=== PATIENT | male | born 1970 | race Two or more races ===

== ENCOUNTER 2017-07-12 12:09 | Emergency (ER) | payer OTHER ==
[2017-07-12 12:15] VITALS: BMI 30.9
--- NOTE | 2017-07-12 12:28 | PDOC ---
History of Present Illness - General History Source: Patient Exam Limitations: No Limitations - History of Present Illness Initial Comments: 07/12/17 14:32 Patient is a 47 year old male who presents to the ED with complaints of hypertension, hypercholesterolemia and diabetes mellitus, who presents to the ED with complaints of increased heart rate that began last night. Patient reports feeling unwell since last night that he states occurred once 2 years ago. He reports experiencing urinary frequency for 1 week but is unsure if it is related to his increased heart rate. Patient reports experiencing intermittent dry mouth. Denies SOB. Denies nausea, vomiting. Denies fevers, chills. Denies contact with sick individuals, out of state travelling. Denies any other symptoms. Allergies: none Social history: No smoking. No alcohol. No illicit drugs. Surgical history: None PMD: Dr. Ry Edmonds. <Reinier Rendon - Last Filed: 07/12/17 14:32> <Jennifer Palumbo - Last Filed: 07/13/17 17:46> - General Chief Complaint: Palpitations Stated Complaint: FAST HEART RATE Time Seen by Provider: 07/12/17 12:26 Past History <Reinier Rendon - Last Filed: 07/12/17 14:32> - Past Medical History Anemia: No Asthma: No Cancer: No Cardiac Disorders: No CVA: No COPD: No CHF: No Dementia: No Diabetes: Yes GI Disorders: No Disorders: No HTN: Yes Hypercholesterolemia: No Liver Disease: No Seizures: No Thyroid Disease: No - Immunization History Immunization Up to Date: Yes - Suicide/Smoking/Psychosocial Hx Smoking History: Never smoked Have you smoked in the past 12 months: No Hx Alcohol Use: No Drug/Substance Use Hx: No Substance Use Type: None Hx Substance Use Treatment: No <Jennifer Palumbo - Last Filed: 07/13/17 17:46> - Past Medical History Allergies/Adverse Reactions: Allergies Allergy/AdvReac Type Severity Reaction Status Date / Time No Known Allergies Allergy Verified 07/12/17 12:15 Home Medications: Ambulatory Orders Aspirin [ASA -] 81 mg PO DAILY 04/06/14 Atorvastatin Ca [Lipitor] 20 mg PO HS 04/06/14 Ezetimibe [Zetia] 10 mg PO DAILY 04/06/14 Insulin Glargine,Hum.rec.anlog [Lantus (10mL VIAL) -] 45 units SQ HS 04/06/14 Sitagliptin Phos/Metformin HCl [Janumet 50-1,000 mg Tablet] 1 tab PO BID Valsartan [Diovan] 160 mg PO DAILY 04/06/14 Review of Systems - Review of Systems Able to Perform ROS?: Yes Comments:: 07/12/17 14:32 GENERAL/CONSTITUTIONAL: No fever or chills. No weakness. HEAD, EYES, EARS, NOSE AND THROAT: No change in vision. No ear pain or discharge. No sore throat. GASTROINTESTINAL: No nausea, vomiting, diarrhea or constipation. GENITOURINARY: No dysuria, frequency, or change in urination. CARDIOVASCULAR: +Increased heart rate. +Slight chest pain. No shortness of breath. RESPIRATORY: No cough, wheezing, or hemoptysis. MUSCULOSKELETAL: No joint or muscle swelling or pain. No neck or back pain. SKIN: No rash NEUROLOGIC: No headache, vertigo, loss of consciousness, or change in strength/ sensation. ENDOCRINE: No increased thirst. No abnormal weight change. HEMATOLOGIC/LYMPHATIC: No anemia, easy bleeding, or history of blood clots. ALLERGIC/IMMUNOLOGIC: No hives or skin allergy. All Other Systems: Reviewed and Negative <Reinier Rendon - Last Filed: 07/12/17 14:32> *Physical Exam - Vital Signs Last Vital Signs Temp Pulse Resp BP Pulse Ox 98.7 F 153 H 20 134/92 100 07/12/17 12:11 07/12/17 12:11 07/12/17 12:11 07/12/17 12:11 07/12/17 12:11 - Physical Exam Comments: 07/12/17 14:32 GENERAL: +Speaking fast. Awake, alert, and fully oriented, in no acute distress HEAD: No signs of trauma EYES: PERRLA, EOMI, sclera anicteric, conjunctiva clear ENT: Auricles normal inspection, hearing grossly normal, nares patent, oropharynx clear without exudates. Moist mucosa NECK: Normal ROM, supple, no lymphadenopathy, JVD, or masses LUNGS: Breath sounds equal, clear to auscultation bilaterally. No wheezes, and no crackles HEART: +Tachycardic with regular rhythm. Regular rate and rhythm, normal S1 and S2, no murmurs, rubs or gallops ABDOMEN: Soft, nontender, normoactive bowel sounds. No guarding, no rebound. No masses EXTREMITIES: Normal range of motion, no edema. No clubbing or cyanosis. No cords, erythema, or tenderness NEUROLOGICAL: +Anxious. Cranial nerves II through XII grossly intact. Normal speech, normal gait SKIN: Warm, Dry, normal turgor, no rashes or lesions noted. <Reinier Rendon - Last Filed: 07/12/17 14:32> - Vital Signs Last Vital Signs Temp Pulse Resp BP Pulse Ox 98.7 F 153 H 20 134/92 100 07/12/17 12:11 07/12/17 12:11 07/12/17 12:11 07/12/17 12:11 07/12/17 12:11 <Jennifer Palumbo - Last Filed: 07/13/17 17:46> Heart Score/ECG Review - ECG Impressions Comment:: EKG read 13:29- Sinus tach 118 bpm, no acute ST/T changes <Jennifer Palumbo - Last Filed: 07/13/17 17:46> ED Treatment Course - LABORATORY CBC & Chemistry Diagram: 07/12/17 12:52 07/12/17 12:52 - ADDITIONAL ORDERS Additional order review: Laboratory Results 07/12/17 07/12/17 07/12/17 12:52 12:52 12:52 PT with INR 10.40 INR 0.92 Sodium 134 L Potassium 3.9 Chloride 97 L Carbon Dioxide 28 Anion Gap 9 BUN 21 H Creatinine 1.2 Creat Clearance w eGFR > 60 Random Glucose 403 H* D Calcium 8.7 Magnesium 1.9 Total Bilirubin 0.6 D AST 33 D ALT 58 Alkaline Phosphatase 62 Creatine Kinase Cancelled 300 Creatine Kinase Index 1.1 CK-MB (CK-2) 3.384 Troponin I Cancelled 0.02 Total Protein 7.4 Albumin 4.0 TSH Cancelled 07/12/17 12:52 RBC 5.47 MCV 79.0 L MCHC 34.8 RDW 12.8 MPV 9.0 Neutrophils % 58.1 D Lymphocytes % 32.2 D Monocytes % 6.4 Eosinophils % 2.7 Basophils % 0.6 <Reinier Rendon - Last Filed: 07/12/17 14:32> - LABORATORY CBC & Chemistry Diagram: 07/12/17 12:52 07/12/17 12:52 <Jennifer Palumbo - Last Filed: 07/13/17 17:46> Medical Decision Making - Medical Decision Making Pt presented with tachycardia, palpitations. Workup showed elevated blood glucose, and patient states that his PMD has been attempting to get a new type of insulin approved for him by his insurance, as he has been requiring higher doses recently. With IV fluids, his BGM improved. He was also given a dose of insulin in the ED. No other acute findings on evaluation. He is on flomax and abx for urinary frequency, prescribed by his PMD. Will f/u with PMD outpatient. <Jennifer Palumbo - Last Filed: 07/13/17 17:46> *DC/Admit/Observation/Transfer - Attestations Scribe Attestion: 07/12/17 14:32 Documentation prepared by Reinier Rendon, acting as medical laboratory technician for Jennifer Palumbo MD, /DO. <Reinier Rendon - Last Filed: 07/12/17 14:32> - Discharge Dispostion Admit: No <Jennifer Palumbo - Last Filed: 07/13/17 17:46> Diagnosis at time of Disposition: Hyperglycemia, Dehydration - Discharge Dispostion Disposition: HOME Condition at time of disposition: Improved - Referrals Referrals: Ry Edmonds MD [Primary Care Provider] - - Patient Instructions Printed Discharge Instructions: DI for Dehydration -- Adult, DI for Hyperglycemia -- Adult - Post Discharge Activity Forms/Work/School Notes: Back to Work
[2017-07-12] MEDS ORDERED: SODIUM CHLORIDE 2,000 ML IV STA (12:46)
[2017-07-12 13:10] LABS: BASO % 0.6 % (0-2.0); EOS % 2.7 % (0-4.5); HEMATOCRIT 43.3 % (35.4-49); HEMOGLOBIN 15.1 GM/dL (11.7-16.9); LYMPH % 32.2 % (8-40); MCH 27.5 pg (25.7-33.7); MCHC 34.8 g/dl (32.0-35.9); MONO % 6.4 % (3.8-10.2); NEUT % 58.1 % (42.8-82.8); PLATELET COUNT 172 K/MM3 (134-434); RBC 5.47 M/mm3 (4.00-5.60); RDW 12.8 % (11.9-15.9); WHITE BLOOD COUNT 7.3 K/mm3 (4.0-10.0)
[2017-07-12 13:34] LABS: INR 0.92 (0.82-1.09); PROTHROMBIN TIME (PATIENT) 10.4 SEC (9.98-11.88)
[2017-07-12 13:35] LABS: URINE APPEARANCE CLEAR; URINE BILIRUBIN NEGATIVE (NEGATIVE); URINE BLOOD NEGATIVE (NEGATIVE); URINE COLOR STRAW; URINE GLUCOSE (UA) 3+ (NEGATIVE); URINE KETONE NEGATIVE (NEGATIVE); URINE LEUK ESTERASE NEGATIVE (NEGATIVE); URINE NITRITE NEGATIVE (NEGATIVE); URINE PROTEIN NEGATIVE (NEGATIVE); URINE UROBILINOGEN NEGATIVE mg/dL (0.2-1.0)
[2017-07-12 13:36] LABS: ANION GAP 9 (8-16); BILIRUBIN,TOTAL 0.6 mg/dL (0.2-1.0); BLOOD UREA NITROGEN 21 mg/dL (7-18); CALCIUM 8.7 mg/dL (8.5-10.1); CHLORIDE 97 mmol/L (98-107); CO2 28 mmol/L (21-32); CREATININE 1.2 mg/dL (0.7-1.3); SGPT/ALT 58 U/L (12-78); SODIUM 134 mmol/L (136-145)
[2017-07-12 13:45] LABS: ALK PHOS 62 U/L (45-117); TOT PROT 7.4 g/dl (6.4-8.2)
[2017-07-12 13:47] LABS: MAGNESIUM 1.9 mg/dL (1.8-2.4); POTASSIUM 3.9 mmol/L (3.5-5.1); SGOT/AST 33 U/L (15-37)
[2017-07-12 13:48] LABS: GLUCOSE,RANDOM 403 mg/dL (74-106)
[2017-07-12] MEDS ORDERED: SODIUM CHLORIDE 1,000 ML IV STA (15:17)
--- NOTE | 2017-07-12 15:24 | EKG ---
Test Reason : Blood Pressure : / mmHG Vent. Rate : 118 BPM Atrial Rate : 118 BPM P-R Int : 154 ms QRS Dur : 090 ms QT Int : 328 ms P-R-T Axes : 034 049 010 degrees QTc Int : 459 ms SINUS TACHYCARDIA NONSPECIFIC ST ABNORMALITY ABNORMAL ECG WHEN COMPARED WITH ECG OF 27-SEP-2015 07:41, NO SIGNIFICANT CHANGE WAS FOUND Confirmed by NATHALIE POLANCO MD ([id number]) on 07/12/2017 3:23:57 PM Referred By: Confirmed By:NATHALIE POLANCO MD
[2017-07-12] MEDS ORDERED: INSULIN REGULAR HUMAN 100 UNITS/ML *VIAL SQ ONE (16:38)
[2017-07-12] MEDS ORDERED: INSULIN REGULAR HUMAN 100 UNITS/ML *VIAL ONE (17:01)
[2017-07-12 17:12] VITALS: BP 104/66; PULSE 89; TEMP 98.1
== END 2017-07-12 17:13 | disposition home or self-care (01) ==
LOC: JER 12:09
PROC: 3E013VG Introduction of Insulin into Subcutaneous Tissue, Percutaneous Approach (ICD-10-PCS; principal; 2017-07-12)
PROC: 3E0337Z Introduction of Electrolytic and Water Balance Substance into Peripheral Vein, Percutaneous Approach (ICD-10-PCS; 2017-07-12)
DX: E11.65 Type 2 diabetes mellitus with hyperglycemia (principal); Z79.4 Long term (current) use of insulin; I10 Essential (primary) hypertension; E78.00 Pure hypercholesterolemia, unspecified
CPT/HCPCS: 36415; 71045-TC; 80053; 81003; 82550; 82553; 82962; 83735; 84443; 84484; 85025; 85610; 87086; 93005; 93010; 99284-25

== ENCOUNTER 2020-01-23 18:30 | Observation (INO) | payer BC, OTHER ==
--- NOTE | 2020-01-23 18:39 | PDOC ---
Rapid Medical Evaluation Chief Complaint: Chest Pain Time Seen by Provider: 01/23/20 18:34 Medical Evaluation: Allergies Allergy/AdvReac Type Severity Reaction Status Date / Time No Known Allergies Allergy Verified 07/12/17 12:15 01/23/20 18:38 49 year old male with pmhx of HTN Dm presenting with 2 hours of chest pain without SOB. Tachycardic and hypertensive PE: CTA Tachy but regular Labs EKG CHest XR Pt to precede to main ED for further management and care
--- NOTE | 2020-01-23 19:02 | PDOC ---
History of Present Illness - General Chief Complaint: Chest Pain Stated Complaint: CHEST PAIN/HYPERTENTION Time Seen by Provider: 01/23/20 18:34 - History of Present Illness Initial Comments: The pt is a 49M w/ a history of HTN, HLD who presents for evaluation of several hours of chest pain. The pain of substernal/right sided, pressure-like, non- radiating, non-exertional, and not exacerbated or alleviated by anything he can identify. He also noted that his BP was elevated today to SBP 180s. He reports taking an ASA 81mg prior to arrival. Denies KAMARA, vision changes, fevers/chills, SOB, current CP, abdominal pain, N/V/C/D 01/23/20 19:19 Past History - Medical History Allergies/Adverse Reactions: Allergies Allergy/AdvReac Type Severity Reaction Status Date / Time No Known Allergies Allergy Verified 07/12/17 12:15 Home Medications: Ambulatory Orders Aspirin [ASA -] 81 mg PO DAILY 04/06/14 Insulin Glargine,Hum.rec.anlog [Lantus (10mL VIAL) -] 48 units SQ BID 04/06/14 Sitagliptin Phos/Metformin HCl [Janumet 50-1,000 mg Tablet] 1 tab PO BID 04/06/14 Atorvastatin Ca [Lipitor] 40 mg PO HS 01/24/20 Loratadine 10 mg PO DAILY 01/24/20 Metoprolol Succinate [Toprol Xl] 50 mg PO DAILY 01/24/20 Valsartan 320 mg PO DAILY #30 tablet 01/24/20 Anemia: No Asthma: No Cancer: No Cardiac Disorders: No CVA: No COPD: No CHF: No Dementia: No Diabetes: Yes GI Disorders: No Disorders: No HTN: Yes Hypercholesterolemia: No Liver Disease: No Seizures: No Thyroid Disease: No - Immunization History Immunization Up to Date: Yes - Psycho-Social/Smoking History Smoking History: Smoker current status UNK Have you smoked in the past 12 months: No - Substance Abuse Hx (Audit-C & DAST Scrn) How often the patient has a drink containing alcohol: Never Score: In Men: 4 or > Positive; In Women: 3 or > Positive: 0 Screen Result (Pos requires Nsg. Audit-10AR): Negative In the last yr the pt used illegal drug/Rx for NonMed reason: No Score: Yes response is considered Positive: 0 Screen Result (Positive result requires Nsg. DAST-10): Negative Review of Systems - Review of Systems Able to Perform ROS?: Yes Comments:: GENERAL/CONSTITUTIONAL: No fever or chills. No weakness HEAD, EYES, EARS, NOSE AND THROAT: No change in vision. No change in hearing. No sore throat CARDIOVASCULAR: No shortness of breath RESPIRATORY: Denies cough, hemoptysis GASTROINTESTINAL: No nausea, vomiting, diarrhea or constipation GENITOURINARY: No dysuria, frequency, or change in urination MUSCULOSKELETAL: No joint or muscle swelling or pain. No neck or back pain SKIN: No rash NEUROLOGIC: No headache, vertigo, loss of consciousness, or change in strength/sensation ENDOCRINE: No increased thirst. No abnormal weight change HEMATOLOGIC/LYMPHATIC: No anemia, easy bleeding, or history of blood clots ALLERGIC/IMMUNOLOGIC: No hives or skin allergy 01/23/20 19:02 Is the patient limited Thai proficient: No *Physical Exam - Vital Signs Last Vital Signs Temp Pulse Resp BP Pulse Ox 98.9 F 129 H 20 182/92 H 100 01/23/20 18:37 01/23/20 18:37 01/23/20 18:37 01/23/20 18:37 01/23/20 18:37 - Physical Exam GENERAL: Awake, alert, and oriented to person/place/time, in no acute distress HEAD: No signs of trauma, normocephalic, atraumatic EYES: PERRLA, EOMI, sclera anicteric, conjunctiva clear ENT: Hearing grossly normal, nares patent, oropharynx clear without exudates. No uvular deviation. Moist mucosa LUNGS: No distress, speaks in full sentences, clear to auscultation bilaterally HEART: Tachycarida w/ regular rhythm, normal S1 and S2, no murmurs appreciated, peripheral pulses normal and equal bilaterally ABDOMEN: Soft, nontender, normoactive bowel sounds. No guarding, no rebound EXTREMITIES: Normal inspection, Normal range of motion, no edema. No clubbing or cyanosis NEUROLOGICAL: Cranial nerves II through XII grossly intact. Normal speech, normal gait, no focal sensorimotor deficits SKIN: Warm, Dry 01/23/20 19:02 ED Treatment Course - LABORATORY CBC & Chemistry Diagram: 01/24/20 07:08 01/24/20 07:08 Medical Decision Making - Medical Decision Making The pt is a 49M w/ a history of HTN, HLD who presents for evaluation of several hours of chest pain. ED Course pt w/o active CP at time of evaluation Pt reports being compliant with BP meds at home Repeat BP 170s/70s 01/23/20 19:22 Pt with improved pressures to 130s/60s Pt continues w/o CP No anemia No leukocytosis Initial Trop I neg RACHEL noted, Cr 1.9, baseline 1-1.2 LFTs unremarkable ECG w/ sinus tachycardia; HR 125; QTc 447; no axis deviation; no acute ischemic changes Pt's BP noted to be elevated back to SBP 160s, will give home meds. Pt continues to deny CP at this time. Plan for admission for ACS and RACHEL 01/23/20 20:47 Discharge - Discharge Information Problems reviewed: Yes Clinical Impression/Diagnosis: ACS (acute coronary syndrome), RACHEL (acute kidney injury) Condition: Stable - Admission Yes - Follow up/Referral - Patient Discharge Instructions - Post Discharge Activity
[2020-01-23] MEDS ORDERED: ASPIRIN 81 MG CHEWABLE TABLETS ONE (19:16)
[2020-01-23] MEDS ORDERED: ASPIRIN 81 MG CHEWABLE TABLETS PO ONE ×2 (19:20→19:23)
[2020-01-23] MEDS ORDERED: LACTATED RINGERS SOLUTION 1000 ML INFUS.BAG IV ONE (19:21)
[2020-01-23 19:36] LABS: BASO % 0.5 % (0-2.0); EOS % 5.7 % (0-4.5); HEMATOCRIT 40.7 % (35.4-49); HEMOGLOBIN 14.2 GM/dL (11.7-16.9); LYMPH % 36.6 % (8-40); MCH 28.2 pg (25.7-33.7); MCHC 34.9 g/dl (32.0-35.9); MEAN CELL VOLUME 80.8 fl (80-96); MEAN PLT VOLUME 9.5 fl (7.5-11.1); MONO % 7.6 % (3.8-10.2); NEUT % 49.6 % (42.8-82.8); PLATELET COUNT 169 K/MM3 (134-434); RBC 5.05 M/mm3 (4.00-5.60); RDW 13.1 % (11.9-15.9); WHITE BLOOD COUNT 6.4 K/mm3 (4.0-10.0)
--- NOTE | 2020-01-23 19:56 | PDOC ---
Attending Attestation - Resident Resident Name: StewartPrince arroyo - ED Attending Attestation I have performed the following: I have examined & evaluated the patient, The case was reviewed & discussed with the resident, I agree w/resident's findings & plan, Exceptions are as noted - HPI HPI: 01/24/20 01:11 See resident HPI - Physicial Exam PE: 01/24/20 01:11 Agree with documented exam - Medical Decision Making 01/23/20 19:56 Chest pain in context of acutely elevated BP and Moderate risk by HEART Monitor f/u labs, ekg will likely need admission neg trop x1, Ck 400s, Cr 1.9 acutely elevated EKG non-ischemic Discharge - Discharge Information Problems reviewed: Yes Clinical Impression/Diagnosis: ACS (acute coronary syndrome), RACHEL (acute kidney injury) Condition: Stable - Follow up/Referral - Patient Discharge Instructions - Post Discharge Activity
[2020-01-23 20:06] LABS: ALBUMIN 3.8 g/dl (3.4-5.0); ALK PHOS 54 U/L (45-117); ANION GAP 11 MMOL/L (8-16); BILIRUBIN,TOTAL 0.4 mg/dL (0.2-1); BLOOD UREA NITROGEN 27.5 mg/dL (7-18); CALCIUM 8.5 mg/dL (8.5-10.1); CHLORIDE 99 mmol/L (98-107); CO2 26 mmol/L (21-32); CREATININE 1.9 mg/dL (0.55-1.3); GLUCOSE,RANDOM 372 mg/dL (74-106); N-TERMINAL BNP 39.3 pg/ml (5-125); POTASSIUM 4.1 mmol/L (3.5-5.1); SGOT/AST 30 U/L (15-37); SGPT/ALT 52 U/L (13-61); SODIUM 136 mmol/L (136-145); TOT PROT 6.8 g/dl (6.4-8.2)
[2020-01-23 20:16] LABS: PH,URINE 5.5 (5.0-8.0); URINE APPEARANCE CLEAR; URINE BILIRUBIN NEGATIVE (NEGATIVE); URINE COLOR YELLOW; URINE GLUCOSE (UA) 3+ (NEGATIVE); URINE KETONE NEGATIVE (NEGATIVE); URINE LEUK ESTERASE NEGATIVE (NEGATIVE); URINE NITRITE NEGATIVE (NEGATIVE); URINE PROTEIN NEGATIVE (NEGATIVE); URINE UROBILINOGEN 0.2 mg/dL (0.2-1.0)
--- NOTE | 2020-01-23 20:58 | PN ---
Teaching Attending Note Name of Resident: Rosalie Lau ATTENDING PHYSICIAN STATEMENT I saw and evaluated the patient. I reviewed the resident's note and discussed the case with the resident. I agree with the resident's findings and plan as documented. SUBJECTIVE: Patient is a 49 year old man with a PMH of HTN, HLD, Arthritis of hands and NIDDM who presents for evaluation of several hours of chest pain. The pain is substernal, right sided, pressure-like, non-radiating and non-exertional. Pain is worse after eating. He also noted that his BP was elevated today to SBP in the 180s. He reports taking an ASA 81 mg prior to arrival. Patient works in a [employer], does a lot of lifting and takes NSAIDS for pain in his hands. Patient denies diaphoresis, shortness of breath, abdominal pain, headache, palpitations, dizziness, fever, chills, nausea, vomiting, diarrhea, constipation, dysuria, frequency, urgency, melena, hematochezia or hematuria. Denies alcohol, tobacco or illicit drug use. No sick contacts or recent travels. Patient has a family history of DM, HTN and heart disease. OBJECTIVE: Alert Vital Signs Period Temp Pulse Resp BP Sys/Menendez Pulse Ox Last 24 Hr 98.9 F 129 20 182/92 100 HEENT: No Jaundice, eye redness or discharge, PERRLA, EOMI. Normocephalic, atraumatic. External ears are normal and hearing is grossly intact. No nasal discharge. Neck: Supple, nontender. No palpable adenopathy or thyromegaly. No JVD Chest: Good effort. Clear to auscultation and percussion. Heart: Regular. No S3, rub or murmur Abdomen: Not distended, soft, nontender and no HSM. No rebound or guarding. Normal bowel sounds. Ext: Peripheral pulses intact. No leg edema. Skin: Warm and dry. No petechiae, rash or ecchymosis. Neuro: Alert. Oriented x3. CN 2-12 grossly intact. Sensation grossly intact in all four extremities and DTR are symmetric. Psych: Appropriate mood and affect. Good insight. Home Medications Medication Instructions Recorded Aspirin [ASA -] 81 mg PO DAILY 04/06/14 Atorvastatin Ca [Lipitor] 20 mg PO HS 04/06/14 Ezetimibe [Zetia] 10 mg PO DAILY 04/06/14 Insulin Glargine,Hum.rec.anlog 45 units SQ HS 04/06/14 [Lantus (10mL VIAL) -] Sitagliptin Phos/Metformin HCl 1 tab PO BID 04/06/14 [Janumet 50-1,000 mg Tablet] Valsartan [Diovan] 160 mg PO DAILY 04/06/14 Abnormal Lab Results 01/23/20 01/23/20 01/23/20 19:15 19:15 19:40 Eosinophils % 5.7 H D BUN 27.5 H Creatinine 1.9 H Random Glucose 372 H Creatine Kinase 426 H CK-MB (CK-2) 5.6 H Urine Glucose (UA) 3+ H Current Medications Generic Name Dose Route Start Last Admin Trade Name Freq PRN Reason Stop Dose Admin Heparin Sodium (Porcine) 5,000 unit 01/24/20 06:00 Heparin - SQ TID CLARKE Sodium Chloride 1,000 mls @ 83 mls/hr 01/23/20 23:15 01/23/20 23:42 Normal Saline - IV 83 mls/hr ASDIR CLARKE Administration Insulin Aspart 1 vial 01/24/20 07:00 Novolog Vial Sliding Scale - SQ ACHS [facility] Protocol Pantoprazole Sodium 40 mg 01/24/20 10:00 Protonix Iv IVPUSH DAILY [facility] ASSESSMENT AND PLAN: 1. Chest pain - Now pain free. Has risk factors for ACS, but postprandial feature suggests GI pathology. No acute abnormality on CXR. EKG shows sinus tachycardia at 125/minute and QTc [address]-T wave changes. Initial troponin is negative. Will admit to telemetry, trend troponin, get ECHO, fasting lipids, TSH, treat with IV Protonix and consult Cardiology. Consult GI for possible EGD. Got Aspirin 243 mg and IV LR in the ER. No acute abnormality on CXR. Viral testing for COVID-19 ordered and patient placed on airborne, droplet and contact isolation. Will continue comprehensive care for all of patients comorbid conditions. 2. RACHEL Has rhabdomyolysis. May be partly due to NSAIDS. Will get kidney sonogram, urine protein/creatinine ratio, hydrate gently with IV NS, monitor urine output and consult Nephrology. Avoid nephrotoxic agents such as NSAIDS, aminoglycosides, 3. DM For now, we will hold the home diabetes drugs and implement sliding scale insulin regimen. Provide comprehensive diabetes care with patient teaching and counseling about the importance of adherence to prescribed diabetes regimen , euglycemia, eye care and foot care. 4. Hypertension Will restart suitable outpatient antihypertensive drugs when clinically appropriate. Subsequently, will revise regimen to ensure [id number] excellent BP control. Patient counseled on the injurious effects of uncontrolled hypertension. Nonpharmacologic measures to control hypertension like weight loss, salt restriction and exercise stressed. Importance of adherence to treatment regimen and attainment of normotension emphasized. 5. DVT prophylaxis - Heparin 5000u sq tid. 6. Advance directives - Full code
[2020-01-23] MEDS ORDERED: VALSARTAN 160 MG TABLET (UD) PO ONE (21:25)
[2020-01-23] MEDS ORDERED: VALSARTAN 80 MG TABLET (UD) ONE (21:38)
--- NOTE | 2020-01-23 23:01 | HP ---
CHIEF COMPLAINT: CHEST PAIN PCP: HISTORY OF PRESENT ILLNESS: Pt is a 49yo male with a past medical history of DM(on insulin) HTN(on valsartan), HLD(on lipitor), arthritis( on naproxene) who presents to the ED with a day's hx of acute chest pain. Pain was of sudden onset, pressure like in nature, not radiating, no relieving or aggravating factor and lasted for about 4 hours thought patients says he is now doing ok without pain. In his words, he says "I am now very fine, I am ok. There is no pain right now". Patient believes today's pain is diferent from his previous episodes of pain which is usually of gradual onset, burning and associated with meals, surgary drinks, kar drinks and immediate periods after waking up from sleep. He rates pain at 5-6/10 on a pain scale. Patient denies associated nausea, vomiting, diarrhea, constipation,melena, hematochezia, cough, shortness of breath, hemoptysis and palpitations. No associated headache, syncope, blurring vision or hearing impairment ER course was notable for: (1) (2) (3) Recent Travel: None PAST SURGICAL HISTORY: None Social History: Smoking:None Alcohol: None Drugs:None Allergies: No known drug or food allergy HOME MEDICATIONS: Home Medications Medication Instructions Recorded Aspirin [ASA -] 81 mg PO DAILY 04/06/14 Atorvastatin Ca [Lipitor] 20 mg PO HS 04/06/14 Ezetimibe [Zetia] 10 mg PO DAILY 04/06/14 Insulin Glargine,Hum.rec.anlog 45 units SQ HS 04/06/14 [Lantus (10mL VIAL) -] Sitagliptin Phos/Metformin HCl 1 tab PO BID 04/06/14 [Janumet 50-1,000 mg Tablet] Valsartan [Diovan] 160 mg PO DAILY 04/06/14 REVIEW OF SYSTEMS CONSTITUTIONAL: Absent: fever, chills, diaphoresis, generalized weakness, malaise, loss of appetite, weight change HEENT: Absent: rhinorrhea, nasal congestion, throat pain, throat swelling, difficulty swallowing, mouth swelling, ear pain, eye pain, visual changes CARDIOVASCULAR: Absent: chest pain, syncope, palpitations, irregular heart rate, lightheadedness, peripheral edema RESPIRATORY: Absent: cough, shortness of breath, dyspnea with exertion, orthopnea, wheezing, stridor, hemoptysis GASTROINTESTINAL: Absent: abdominal pain, abdominal distension, nausea, vomiting, diarrhea, constipation, melena, hematochezia GENITOURINARY: Absent: dysuria, frequency, urgency, hesitancy, hematuria, flank pain, genital pain MUSCULOSKELETAL: Absent: myalgia, arthralgia, joint swelling, back pain, neck pain SKIN: Absent: rash, itching, pallor HEMATOLOGIC/IMMUNOLOGIC: Absent: easy bleeding, easy bruising, lymphadenopathy, frequent infections ENDOCRINE: Absent: unexplained weight gain, unexplained weight loss, heat intolerance, cold intolerance NEUROLOGIC: Absent: headache, focal weakness or paresthesias, dizziness, unsteady gait, seizure, mental status changes, bladder or bowel incontinence PSYCHIATRIC: Absent: anxiety, depression, suicidal or homicidal ideation, hallucinations. PHYSICAL EXAMINATION Vital Signs - 24 hr 01/23/20 01/23/20 18:37 21:40 Temperature 98.9 F Pulse Rate 129 H Pulse Rate [ 84 Left Radial] Respiratory 20 16 Rate Blood Pressure 182/92 H Blood Pressure 137/85 [Right Arm] O2 Sat by Pulse 100 97 Oximetry (%) GENERAL: Awake, alert, and fully oriented, in no acute distress. HEAD: Normal with no signs of trauma. EYES: Pupils equal, round and reactive to light, extraocular movements intact, sclera anicteric, conjunctiva clear. No lid lag. EARS, NOSE, THROAT: Ears normal, nares patent, oropharynx clear without exudates. Moist mucous membranes. NECK: Normal range of motion, supple without lymphadenopathy, JVD, or masses. LUNGS: Breath sounds equal, clear to auscultation bilaterally. No wheezes, and no crackles. No accessory muscle use. HEART: Regular rate and rhythm, normal S1 and S2 without murmur, rub or gallop. ABDOMEN: Soft, nontender, not distended, normoactive bowel sounds, no guarding, no rebound, no masses. No hepatomegaly or splenomegaly. MUSCULOSKELETAL: Normal range of motion at all joints. No bony deformities or tenderness. No CVA tenderness. UPPER EXTREMITIES: 2+ pulses, warm, well-perfused. No cyanosis. No clubbing. No peripheral edema. LOWER EXTREMITIES: 2+ pulses, warm, well-perfused. No calf tenderness. No peripheral edema. NEUROLOGICAL: Cranial nerves II-XII intact. Normal speech. Normal gait. PSYCHIATRIC: Cooperative. Good eye contact. Appropriate mood and affect. SKIN: Warm, dry, normal turgor, no rashes or lesions noted, normal capillary refill. Laboratory Results - last 24 hr 01/23/20 01/23/20 01/23/20 19:15 19:15 19:40 WBC 6.4 RBC 5.05 Hgb 14.2 Hct 40.7 MCV 80.8 MCH 28.2 MCHC 34.9 RDW 13.1 Plt Count 169 MPV 9.5 Absolute Neuts (auto) 3.2 Neutrophils % 49.6 Lymphocytes % 36.6 Monocytes % 7.6 Eosinophils % 5.7 H D Basophils % 0.5 Nucleated RBC % 0 Sodium 136 Potassium 4.1 Chloride 99 Carbon Dioxide 26 Anion Gap 11 BUN 27.5 H Creatinine 1.9 H Est GFR (CKD-EPI)AfAm 46.28 Est GFR (CKD-EPI)NonAf 39.93 Random Glucose 372 H Calcium 8.5 Total Bilirubin 0.4 AST 30 ALT 52 Alkaline Phosphatase 54 Creatine Kinase 426 H Creatine Kinase Index 1.3 CK-MB (CK-2) 5.6 H Troponin I < 0.02 B-Natriuretic Peptide 39.3 Total Protein 6.8 Albumin 3.8 Beta-Hydroxybutyrate 2.2 Urine Color Yellow Urine Appearance Clear Urine pH 5.5 Ur Specific [place] 1.030 Urine Protein Negative Urine Glucose (UA) 3+ H Urine Ketones Negative Urine Blood Negative Urine Nitrite Negative Urine Bilirubin Negative Urine Urobilinogen 0.2 Ur Leukocyte Esterase Negative ASSESSMENT/PLAN: ATTENDING PHYSICIAN STATEMENT I saw and evaluated the patient. I reviewed the resident's note and discussed the case with the resident. I agree with the resident's findings and plan as documented. SUBJECTIVE: OBJECTIVE: ASSESSMENT AND PLAN:
[2020-01-23] MEDS ORDERED: PANTOPRAZOLE SODIUM 40 MG VIAL IVPUSH ONE (23:15)
[2020-01-23] MEDS ORDERED: SODIUM CHLORIDE 1,000 ML IV SCH (23:15)
[2020-01-24 04:18] VITALS: BMI 34.8
[2020-01-24] MEDS ORDERED: HEPARIN NA (PORCINE) 5,000 UNITS/ML 1ML VIAL SQ SCH (06:00)
[2020-01-24] MEDS ORDERED: INSULIN SLIDING SCALE (NOVOLOG) 1 VIAL SQ SCH (07:00)
[2020-01-24 07:36] LABS: BASO % 0.6 % (0-2.0); EOS % 6.7 % (0-4.5); HEMOGLOBIN 13.4 GM/dL (11.7-16.9); LYMPH % 37.4 % (8-40); MCH 27.2 pg (25.7-33.7); MCHC 34.4 g/dl (32.0-35.9); MEAN PLT VOLUME 8.9 fl (7.5-11.1); MONO % 7.4 % (3.8-10.2); NEUT % 47.9 % (42.8-82.8); PLATELET COUNT 143 K/MM3 (134-434); RBC 4.94 M/mm3 (4.00-5.60); RDW 13.1 % (11.9-15.9); WHITE BLOOD COUNT 4.9 K/mm3 (4.0-10.0)
--- NOTE | 2020-01-24 07:42 | HP ---
CHIEF COMPLAINT: PCP: HISTORY OF PRESENT ILLNESS: Pt is a 49yo male with a past medical history of DM(on insulin) HTN(on valsartan), HLD(on lipitor), arthritis( on naproxene) who presents to the ED with a day's hx of acute chest pain. Pain was of sudden onset, pressure like in nature, not radiating, no relieving or aggravating factor and lasted for about 4 hours thought patients says he is now doing ok without pain. In his words, he says "I am now very fine, I am ok. There is no pain right now". Patient believes today's pain is diferent from his previous episodes of pain which is usually of gradual onset, burning and associated with meals, surgary drinks, kar drinks and immediate periods after waking up from sleep. He rates pain at 5-6/10 on a pain scale. Patient denies associated nausea, vomiting, diarrhea, constipation,melena, hematochezia, cough, shortness of breath, hemoptysis and palpitations. No associated headache, syncope, blurring vision or hearing impairment ER course was notable for: (1) Aspirin 243, IV LR (2)Cardiac enzymes (3) EKG REVIEW OF SYSTEMS Negative except as above Recent Travel: None PAST SURGICAL HISTORY: None Social/ FHx History: He lives with his and 4 children Smoking:None Alcohol:None Drugs: None Allergies: No Known drug or food allergies FHx: Heart disease, DM, HTN Occupation: He works in [employer] where he lifts heavy boxes. 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 Home Medications Medication Instructions Recorded Aspirin [ASA -] 81 mg PO DAILY 04/06/14 Atorvastatin Ca [Lipitor] 20 mg PO HS 04/06/14 Ezetimibe [Zetia] 10 mg PO DAILY 04/06/14 Insulin Glargine,Hum.rec.anlog 45 units SQ HS 04/06/14 [Lantus (10mL VIAL) -] Sitagliptin Phos/Metformin HCl 1 tab PO BID 04/06/14 [Janumet 50-1,000 mg Tablet] Valsartan [Diovan] 160 mg PO DAILY 04/06/14 Vital Signs - 24 hr 01/23/20 01/23/2001/22/20 18:37 21:40 23:03 Temperature 98.9 F 98.0 F Pulse Rate 129 H 85 Pulse Rate [ 84 Left Radial] Respiratory 20 16 16 Rate Blood Pressure 182/92 H 136/89 Blood Pressure 137/85 [Right Arm] O2 Sat by Pulse 100 97 96 Oximetry (%) 01/24/20 05:03 Temperature 97.8 F Pulse Rate 76 Pulse Rate [ Left Radial] Respiratory 16 Rate Blood Pressure 145/83 Blood Pressure [Right Arm] O2 Sat by Pulse Oximetry (%) PHYSICAL EXAMINATION GENERAL: Awake, alert, and fully oriented, in no acute distress. HEAD: Normocephalic with no area of tenderness. EYES: EOMI intact b/l, sclera anicteric, conjunctiva clear. No lid lag or eye discharge. Fundoscopy was attempted but not successful EARS, NOSE, THROAT: Ears normal, nares patent, oropharynx clear without exudates. Moist mucous membranes. NECK: Normal range of motion, supple, no lymphadenopathy, JVD, or masses. CHEST:Moves with respiration,no obvious signs of respiratory distress, vesicular breath sounds are heard b/l, no crackle or rhonchi. HEART: HR: 100/m, regular rate and rhythm, normal S1 and S2, no murmur, rub or gallop. ABDOMEN: Moves with respiration, Soft, nontender, not distended, normoactive bowel sounds, no guarding, no rebound, no masses. No hepatomegaly or splenomegaly. MUSCULOSKELETAL: Normal range of motion at all joints. No bony deformities or tenderness. No CVA tenderness. UPPER EXTREMITIES: 2+ pulses, warm, well-perfused. No cyanosis. No clubbing. No peripheral edema. LOWER EXTREMITIES: 2+ pulses, warm, well-perfused. No calf tenderness. No peripheral edema. NEUROLOGICAL: Alert, oriented x3, Cranial nerves II-XII intact. Normal speech. motor 5/5 on all limbs. Sensation intact on all limbs PSYCHIATRIC: Cooperative. Good eye contact. Appropriate mood and affect. SKIN: Warm, dry, normal turgor, no rashes or lesions noted, normal capillary refill. Laboratory Results - last 24 hr 01/23/20 01/23/20 01/23/20 19:15 19:15 19:40 WBC 6.4 RBC 5.05 Hgb 14.2 Hct 40.7 MCV 80.8 MCH 28.2 MCHC 34.9 RDW 13.1 Plt Count 169 MPV 9.5 Absolute Neuts (auto) 3.2 Neutrophils % 49.6 Lymphocytes % 36.6 Monocytes % 7.6 Eosinophils % 5.7 H D Basophils % 0.5 Nucleated RBC % 0 Sodium 136 Potassium 4.1 Chloride 99 Carbon Dioxide 26 Anion Gap 11 BUN 27.5 H Creatinine 1.9 H Est GFR (CKD-EPI)AfAm 46.28 Est GFR (CKD-EPI)NonAf 39.93 POC Glucometer Random Glucose 372 H Calcium 8.5 Total Bilirubin 0.4 AST 30 ALT 52 Alkaline Phosphatase 54 Creatine Kinase 426 H Creatine Kinase Index 1.3 CK-MB (CK-2) 5.6 H Troponin I < 0.02 B-Natriuretic Peptide 39.3 Total Protein 6.8 Albumin 3.8 Triglycerides Cholesterol Total LDL Cholesterol HDL Cholesterol Beta-Hydroxybutyrate 2.2 Urine Color Yellow Urine Appearance Clear Urine pH 5.5 Ur Specific [place] 1.030 Urine Protein Negative Urine Glucose (UA) 3+ H Urine Ketones Negative Urine Blood Negative Urine Nitrite Negative Urine Bilirubin Negative Urine Urobilinogen 0.2 Ur Leukocyte Esterase Negative 01/23/20 01/24/20 01/24/20 23:40 00:30 05:50 WBC RBC Hgb Hct MCV MCH MCHC RDW Plt Count MPV Absolute Neuts (auto) Neutrophils % Lymphocytes % Monocytes % Eosinophils % Basophils % Nucleated RBC % Sodium Potassium Chloride Carbon Dioxide Anion Gap BUN Creatinine Est GFR (CKD-EPI)AfAm Est GFR (CKD-EPI)NonAf POC Glucometer 245 189 Random Glucose Calcium Total Bilirubin AST ALT Alkaline Phosphatase Creatine Kinase Creatine Kinase Index CK-MB (CK-2) Troponin I 0.02 B-Natriuretic Peptide Total Protein Albumin Triglycerides Cholesterol Total LDL Cholesterol HDL Cholesterol Beta-Hydroxybutyrate Urine Color Urine Appearance Urine pH Ur Specific [place] Urine Protein Urine Glucose (UA) Urine Ketones Urine Blood Urine Nitrite Urine Bilirubin Urine Urobilinogen Ur Leukocyte Esterase 01/24/20 07:08 WBC RBC Hgb Hct MCV MCH MCHC RDW Plt Count MPV Absolute Neuts (auto) Neutrophils % Lymphocytes % Monocytes % Eosinophils % Basophils % Nucleated RBC % Sodium Potassium Chloride Carbon Dioxide Anion Gap BUN Creatinine Est GFR (CKD-EPI)AfAm Est GFR (CKD-EPI)NonAf POC Glucometer Random Glucose Calcium Total Bilirubin AST ALT Alkaline Phosphatase Creatine Kinase Creatine Kinase Index CK-MB (CK-2) Troponin I B-Natriuretic Peptide Total Protein Albumin Triglycerides Cancelled Cholesterol Cancelled Total LDL Cholesterol Cancelled HDL Cholesterol Cancelled Beta-Hydroxybutyrate Urine Color Urine Appearance Urine pH Ur Specific [place] Urine Protein Urine Glucose (UA) Urine Ketones Urine Blood Urine Nitrite Urine Bilirubin Urine Urobilinogen Ur Leukocyte Esterase ASSESSMENT/PLAN: 1. Chest pain - - Likely due to GERD - Pain is post postprandial, and after sleep - Patient is obese, enjoys fatty meals, pop and kar drinks - Initial troponin are negative - No longer having pain, says he is pain free and feeling fine - CXR not suggestive of chest infection or lung infection but shows sinus tachycardia at 125/minute and QTc [address]-T wave changes. - Will admit to telemetry, repeat troponin, get ECHO, fasting lipids profile, TSH - Give IV push Protonix - Consult Cardiology. - Consult GI for possible EGD. Got Aspirin 243 mg and IV LR in the ER. - PCR for COVID-19 ordered and patient has been placed on airborne, droplet and contact isolation. - Patient to continue continuity of care for all chronic med conditions with out patient physicians on discharge 2. Acute Kidney Injury. -BUN 27.5 -Cr 1.7, baseline is 1.0-1.2 -Patient taking NSAIDS(naproxene)for arthritis -Hyperglycemic induced hypovolemic, Urine glucose 3+, RBS 372mg/dl - IVF: LR for rehydration -low fat, low salt and low fat diet to be administered while on admission -urine output to be monitored -Avoid contrast and other meds: enoxaparin, NSAIDS, aminoglycosides -Patient to be getting kidney uss, urine protein/creatinine ratio -consult Nephrology. 3. DIABETES - I would like to patient's home diabetic meds - Patient to be on ISS while on admission - Diabetic education for the purpose of reiterating the benefits of blood glucose control in delaying/limiting the onset/progression DM microvascular complications - Continue follow up with pcp, opthalmologist and living skills advisor on discharge as scheduled by outpat physician importance of adherence to prescribed diabetes regimen, euglycemia, eye care and foot care. 4. Hypertension -Patient to resume intake of prescribed antihypertensive drugs when clinically appropriate. -Patient to be educated on importance of meds adherance, weight loss and healthy eating on the complications of HTN -BP on admission 165/86mmHg 5. Eosinophilia -Patient on terminologist NSAID use 6. DVT prophylaxis - Heparin 5000iu, subcut tid 7. Advance directives - Full code Visit type - Emergency Visit Emergency Visit: Yes ED Registration Date: 01/24/20 Care time: The patient presented to the Emergency Department on the above date and was hospitalized for further evaluation of their emergent condition. - New Patient This patient is new to me today: Yes Date on this admission: 01/26/20 - Critical Care Critical Care patient: No ATTENDING PHYSICIAN STATEMENT I saw and evaluated the patient. I reviewed the resident's note and discussed the case with the resident. I agree with the resident's findings and plan as documented. SUBJECTIVE: OBJECTIVE: ASSESSMENT AND PLAN:
[2020-01-24 08:12] LABS: ALBUMIN 3.4 g/dl (3.4-5.0); BILIRUBIN,TOTAL 0.6 mg/dL (0.2-1); BLOOD UREA NITROGEN 25.3 mg/dL (7-18); CALCIUM 8.2 mg/dL (8.5-10.1); CREATININE 1.2 mg/dL (0.55-1.3); PHOSPHOROUS 2.8 mg/dL (2.5-4.9); POTASSIUM 3.9 mmol/L (3.5-5.1); TOT PROT 6.3 g/dl (6.4-8.2)
--- NOTE | 2020-01-24 09:53 | PN ---
Teaching Attending Note Name of Resident: Ella Dias ATTENDING PHYSICIAN STATEMENT I saw and evaluated the patient. I reviewed the resident's note and discussed the case with the resident. I agree with the resident's findings and plan as documented. SUBJECTIVE: Patient is feeling better with NAD, no further pain is reported by the patient. OBJECTIVE: Vital Signs Temperature 97.8 F 01/24/20 05:03 Pulse Rate 76 01/24/20 05:03 Respiratory Rate 16 01/24/20 05:03 Blood Pressure 145/83 01/24/20 05:03 O2 Sat by Pulse Oximetry (%) 96 01/23/20 23:03 PE: per resident's note CBCD WBC 4.9 K/mm3 (4.0-10.0) 01/24/20 07:08 RBC 4.94 M/mm3 (4.00-5.60) 01/24/20 07:08 Hgb 13.4 GM/dL (11.7-16.9) 01/24/20 07:08 Hct 39.0 % (35.4-49) 01/24/20 07:08 MCV 79.0 fl (80-96) L 01/24/20 07:08 MCHC 34.4 g/dl (32.0-35.9) 01/24/20 07:08 RDW 13.1 % (11.9-15.9) 01/24/20 07:08 Plt Count 143 K/MM3 (134-434) 01/24/20 07:08 MPV 8.9 fl (7.5-11.1) 01/24/20 07:08 CMP Sodium 138 mmol/L (136-145) 01/24/20 07:08 Potassium 3.9 mmol/L (3.5-5.1) 01/24/20 07:08 Chloride 103 mmol/L (98-107) 01/24/20 07:08 Carbon Dioxide 27 mmol/L (21-32) 01/24/20 07:08 Anion Gap 8 MMOL/L (8-16) 01/24/20 07:08 BUN 25.3 mg/dL (7-18) H 01/24/20 07:08 Creatinine 1.2 mg/dL (0.55-1.3) 01/24/20 07:08 Random Glucose 189 mg/dL (74-106) H 01/24/20 07:08 Calcium 8.2 mg/dL (8.5-10.1) L 01/24/20 07:08 Total Bilirubin 0.6 mg/dL (0.2-1) 01/24/20 07:08 AST 21 U/L (15-37) 01/24/20 07:08 ALT 43 U/L (13-61) 01/24/20 07:08 Alkaline Phosphatase 42 U/L (45-117) L 01/24/20 07:08 Total Protein 6.3 g/dl (6.4-8.2) L 01/24/20 07:08 Albumin 3.4 g/dl (3.4-5.0) 01/24/20 07:08 CARDIAC ENZYMES Creatine Kinase 426 U/L (26-308) H 01/23/20 19:15 Troponin I 0.02 ng/ml (0.00-0.05) 01/24/20 00:30 Current Medications Generic Name Dose Route Start Last Admin Trade Name Jed PRN Reason Stop Dose Admin Aspirin 81 mg 01/24/20 10:00 Asa - PO DAILY ON LICENSE OF [facility] Atorvastatin Calcium 40 mg 01/24/20 22:00 Lipitor - PO HS CLARKE Heparin Sodium (Porcine) 5,000 unit 01/24/20 06:00 01/24/20 06:19 Heparin - SQ 5,000 unit TID CLARKE Administration Hydrochlorothiazide 12.5 mg 01/24/20 10:00 Hctz - PO DAILY ON LICENSE OF [facility] Sodium Chloride 1,000 mls @ 83 mls/hr 01/23/20 23:15 01/23/20 23:42 Normal Saline - IV 83 mls/hr ASDIR ON LICENSE OF [facility] Administration Insulin Aspart 1 vial 01/24/20 07:00 01/24/20 06:19 Novolog Vial Sliding Scale - SQ 2 units ACHS ON LICENSE OF [facility] Administration Protocol Insulin Detemir 48 units 01/24/20 09:10 Levemir Vial SQ BID ON LICENSE OF [facility] Lactobacillus Acidophilus 1 tab 01/24/20 10:00 01/24/20 09:16 Bacid - PO 1 tab DAILY CL[facility]KE Administration Metoprolol Succinate 50 mg 01/24/20 10:00 Toprol Xl - PO DAILY ON LICENSE OF [facility] Pantoprazole Sodium 40 mg 01/24/20 10:00 01/24/20 09:16 Protonix Iv IVPUSH 40 mg DAILY ON LICENSE OF [facility] Administration Valsartan 160 mg 01/24/20 10:00 Diovan - PO DAILY ON LICENSE OF [facility] Home Medications Medication Instructions Recorded Aspirin [ASA -] 81 mg PO DAILY 04/06/14 Insulin Glargine,Hum.rec.anlog 48 units SQ BID 04/06/14 [Lantus (10mL VIAL) -] Sitagliptin Phos/Metformin HCl 1 tab PO BID 04/06/14 [Janumet 50-1,000 mg Tablet] Atorvastatin Ca [Lipitor] 40 mg PO HS 01/24/20 Loratadine 10 mg PO DAILY 01/24/20 Metoprolol Succinate [Toprol Xl] 50 mg PO DAILY 01/24/20 Valsartan/Hydrochlorothiazide 1 each PO DAILY 01/24/20 [Valsartan-Hctz 160-12.5 mg Tab] ASSESSMENT AND PLAN: This patient is a 49yom with pmhx of t2dm, htn, hld, and arthritis who presents to the ER with chest pain and was found to have elevated blood pressure and elevated kidney function. #Acute chest pain : resolved most likely due to GERD #RACHEL s/p IVF improved, patient is on Hctz at will dc as per discussion with Dr Jimenez, and increased the dose of diovan to 320mg daily #Hypertensive Urgency : continue BB, increased the dose of valsartan to 320mg daily and dc'd nsaid use, discussed with dr Jimenez #T2DM : continue home meds #HLD: continue pravachol discharge patient home with f/u visits with Dr Jimenez/and dr fernandez
[2020-01-24] MEDS ORDERED: VALSARTAN 160 MG TABLET (UD) PO SCH (10:00)
[2020-01-24] MEDS ORDERED: HYDROCHLOROTHIAZIDE 12.5 MG CAPSULE (FP) PO SCH (10:00)
[2020-01-24] MEDS ORDERED: INSULIN GLARGINE HUM REC ANLOG 48 UNIT SQ SCH (10:00)
[2020-01-24] MEDS ORDERED: ASPIRIN 81 MG CHEWABLE TABLETS PO SCH (10:00)
[2020-01-24] MEDS ORDERED: LACTOBACILLUS ACIDOPHILUS 1 TABLET PO SCH (10:00)
[2020-01-24] MEDS ORDERED: PANTOPRAZOLE SODIUM 40 MG VIAL IVPUSH SCH (10:00)
[2020-01-24] MEDS ORDERED: PATIENT'S OWN MEDICATION (NON-FORMULARY) (Valsartan/Hydrochlorothiazide [Valsartan-Hctz 16 PO SCH (10:00)
[2020-01-24] MEDS: INSULIN (LEVEMIR) 100 UNITS/ML UNITS SQ SCH ×2 (10:52→11:05)
--- NOTE | 2020-01-24 10:57 | ECHO ---
Version: 1 Name: FRANK WALKER Exam: Adult Echocardiogram Study Date: 01/24/2020, 9:39 AM Age: 49 Years MMode/2D Measurements & Calculations IVSd: 0.87 cm LVIDs: 3.3 cm LVIDd: 5.0 cm LVPWd: 0.91 cm LAV (MOD-bp): 51.0 ml ACS: 2.46 cm Ao root diam: 3.8 cm LVOT diam: 2.18 cm LA dimension: 3.6 cm Doppler Measurements & Calculations MV E max robert: 103.7 cm/sec Med E/e': 14.0 MV A max robert: 97.5 cm/sec Med Peak E' Robert: 7.4 cm/sec MV E/A: 1.06 Lat E/e': 10.1 Lat Peak E' Rboert: 10.2 cm/sec MR max P.9 mmHg LV V1 mean: 72.2 cm/sec LV V1 mean P.44 mmHg TR max robert: 244.4 cm/sec TR max P.9 mmHg Left Ventricle The left ventricular size, thickness and function are normal. The transmitral spectral Doppler flow pattern is normal for age. Right Ventricle The right ventricle is normal in size and function. Atria Normal left and right atrial size and function. Mitral Valve The mitral valve is normal in structure and function. There is no mitral valve stenosis. There is mi ld mitral regurgitation. Tricuspid Valve The tricuspid valve is normal in structure and function. There is mild tricuspid regurgitation. Righ t ventricular systolic pressure is normal. Aortic Valve The aortic valve opens well. No hemodynamically significant valvular aortic stenosis. No aortic regu rgitation is present. Pulmonic Valve The pulmonic valve is not well seen, but is grossly normal. There is no pulmonic valvular stenosis. Great Vessels Borderline aortic root dilatation. Pericardium/Pleura There is no pericardial effusion. Tech Comments TDS due to body habitus. Summary Statements The left ventricular size, thickness and function are normal The right ventricle is normal in size and function. There is mild mitral regurgitation. There is mild tricuspid regurgitation. Borderline aortic root dilatation. There is no pericardial effusion. MD Raymundo *Nunu 01/24/2020, 10:56 AM Ordering Physician: Rosalie Garcia Referring Physician: ROSALIE GARCIA Performed By: Spring Woodson
--- NOTE | 2020-01-24 12:37 | EKG ---
Test Reason : Blood Pressure : / mmHG Vent. Rate : 078 BPM Atrial Rate : 078 BPM P-R Int : 160 ms QRS Dur : 092 ms QT Int : 384 ms P-R-T Axes : 043 038 036 degrees QTc Int : 437 ms NORMAL SINUS RHYTHM NORMAL ECG Confirmed by RHONA CAREY MD ([id number]) on 01/24/2020 12:37:23 PM Referred By: HOSPITALIST Confirmed By:RHONA CAREY MD
--- NOTE | 2020-01-24 14:43 | DS ---
Physical Exam: SUBJECTIVE: Patient seen and examined bedside. Endorses feeling much better. Said he had some stomach pain and gas last night that has gotten much better. Denies any chest pain since onset that brought him to hospital. Says his chest pain yesterday occurred not long after dinner and he had been laying back when the pain started. He endorses a history of heartburn with similar feeling many times in the past. OBJECTIVE: Vital Signs Vital Signs - 8 hr 01/24/20 09:54 Temperature 98.2 F Pulse Rate 78 Respiratory 18 Rate Blood Pressure 155/68 O2 Sat by Pulse 97 Oximetry (%) PHYSICAL EXAM GENERAL: The patient is awake, alert, and fully oriented, in no acute distress. HEAD: Normal with no signs of trauma. EYES: PERRL, extraocular movements intact, sclera anicteric, conjunctiva clear. ENT: moist mucous membranes. LUNGS: Breath sounds equal, clear to auscultation bilaterally HEART: Regular rate and rhythm, S1, S2 without murmur, rub or gallop. ABDOMEN: Soft, nontender, nondistended, increased bowel sounds, no guarding EXTREMITIES: 2+ pulses, warm, well-perfused, no edema. NEUROLOGICAL: Normal speech, gait not observed. PSYCH: Normal mood, normal affect. SKIN: Warm, dry, normal turgor Laboratory Results - last 24 hr 01/23/20 01/23/20 01/23/20 19:15 19:15 19:40 WBC 6.4 RBC 5.05 Hgb 14.2 Hct 40.7 MCV 80.8 MCH 28.2 MCHC 34.9 RDW 13.1 Plt Count 169 MPV 9.5 Absolute Neuts (auto) 3.2 Neutrophils % 49.6 Lymphocytes % 36.6 Monocytes % 7.6 Eosinophils % 5.7 H D Basophils % 0.5 Nucleated RBC % 0 Sodium 136 Potassium 4.1 Chloride 99 Carbon Dioxide 26 Anion Gap 11 BUN 27.5 H Creatinine 1.9 H Est GFR (CKD-EPI)AfAm 46.28 Est GFR (CKD-EPI)NonAf 39.93 POC Glucometer Random Glucose 372 H Hemoglobin A1c % Calcium 8.5 Phosphorus Magnesium Total Bilirubin 0.4 AST 30 ALT 52 Alkaline Phosphatase 54 Creatine Kinase 426 H Creatine Kinase Index 1.3 CK-MB (CK-2) 5.6 H Troponin I < 0.02 B-Natriuretic Peptide 39.3 Total Protein 6.8 Albumin 3.8 Triglycerides Cholesterol Total LDL Cholesterol HDL Cholesterol Beta-Hydroxybutyrate 2.2 TSH Urine Color Yellow Urine Appearance Clear Urine pH 5.5 Ur Specific [place] 1.030 Urine Protein Negative Urine Glucose (UA) 3+ H Urine Ketones Negative Urine Blood Negative Urine Nitrite Negative Urine Bilirubin Negative Urine Urobilinogen 0.2 Ur Leukocyte Esterase Negative 01/23/20 01/24/20 01/24/20 23:40 00:30 05:50 WBC RBC Hgb Hct MCV MCH MCHC RDW Plt Count MPV Absolute Neuts (auto) Neutrophils % Lymphocytes % Monocytes % Eosinophils % Basophils % Nucleated RBC % Sodium Potassium Chloride Carbon Dioxide Anion Gap BUN Creatinine Est GFR (CKD-EPI)AfAm Est GFR (CKD-EPI)NonAf POC Glucometer 245 189 Random Glucose Hemoglobin A1c % Calcium Phosphorus Magnesium Total Bilirubin AST ALT Alkaline Phosphatase Creatine Kinase Creatine Kinase Index CK-MB (CK-2) Troponin I 0.02 B-Natriuretic Peptide Total Protein Albumin Triglycerides Cholesterol Total LDL Cholesterol HDL Cholesterol Beta-Hydroxybutyrate TSH Urine Color Urine Appearance Urine pH Ur Specific [place] Urine Protein Urine Glucose (UA) Urine Ketones Urine Blood Urine Nitrite Urine Bilirubin Urine Urobilinogen Ur Leukocyte Esterase 01/24/20 01/24/20 01/24/20 07:08 07:08 07:08 WBC 4.9 RBC 4.94 Hgb 13.4 Hct 39.0 MCV 79.0 L MCH 27.2 MCHC 34.4 RDW 13.1 Plt Count 143 MPV 8.9 Absolute Neuts (auto) 2.4 Neutrophils % 47.9 Lymphocytes % 37.4 Monocytes % 7.4 Eosinophils % 6.7 H Basophils % 0.6 Nucleated RBC % 1 H Sodium 138 Potassium 3.9 Chloride 103 Carbon Dioxide 27 Anion Gap 8 BUN 25.3 H Creatinine 1.2 Est GFR (CKD-EPI)AfAm 80.66 Est GFR (CKD-EPI)NonAf 69.59 POC Glucometer Random Glucose 189 H Hemoglobin A1c % Calcium 8.2 L Phosphorus 2.8 Magnesium 2.0 Total Bilirubin 0.6 AST 21 ALT 43 Alkaline Phosphatase 42 L Creatine Kinase Creatine Kinase Index CK-MB (CK-2) Troponin I B-Natriuretic Peptide Total Protein 6.3 L Albumin 3.4 Triglycerides 169 H Cancelled Cholesterol 95 Cancelled Total LDL Cholesterol 43 Cancelled HDL Cholesterol 32 L Cancelled Beta-Hydroxybutyrate TSH 1.10 D Urine Color Urine Appearance Urine pH Ur Specific [place] Urine Protein Urine Glucose (UA) Urine Ketones Urine Blood Urine Nitrite Urine Bilirubin Urine Urobilinogen Ur Leukocyte Esterase 01/24/20 08:00 WBC RBC Hgb Hct MCV MCH MCHC RDW Plt Count MPV Absolute Neuts (auto) Neutrophils % Lymphocytes % Monocytes % Eosinophils % Basophils % Nucleated RBC % Sodium Potassium Chloride Carbon Dioxide Anion Gap BUN Creatinine Est GFR (CKD-EPI)AfAm Est GFR (CKD-EPI)NonAf POC Glucometer Random Glucose Hemoglobin A1c % 10.1 H Calcium Phosphorus Magnesium Total Bilirubin AST ALT Alkaline Phosphatase Creatine Kinase Creatine Kinase Index CK-MB (CK-2) Troponin I B-Natriuretic Peptide Total Protein Albumin Triglycerides Cholesterol Total LDL Cholesterol HDL Cholesterol Beta-Hydroxybutyrate TSH Urine Color Urine Appearance Urine pH Ur Specific [place] Urine Protein Urine Glucose (UA) Urine Ketones Urine Blood Urine Nitrite Urine Bilirubin Urine Urobilinogen Ur Leukocyte Esterase HOSPITAL COURSE: Patient presented to the ED with chest pain and high blood pressure. Patient BP was elevated in the ED and treated with his usual dose of losartan and aspirin. There were no acute abnormality on CXR. EKG shows sinus tachycardia at 125/minute and QTc [address]-T wave changes. Patient was admitted to tele/obs to monitor his chest pain and because on his labs he was found to have an RACHEL. His initial troponin and repeat troponin were negative. Patient symptoms consistent with GERD especially given his history of NSAID use for arthritis. All of his symptoms improved with IV protonixs. He was given IVF overnight for his RACHEL and morning labs showed it had resolved. Patient was advised to stop taking NSAIDS until his primary doctor or GI doctor worked up his GERD and rechecked his kidneys, as it can be contributing to both. Patient also advised to maintain a low fat, low carb, low sugar diet for both his GERD and his diabetes. HbA1c in hospital was 10.1. Patient is stable for discharge and given instructions to follow up with PCP and GI. Date of Admission:01/24/20 Date of Discharge: 01/24/20 Minutes to complete discharge: 36 Discharge Summary Problems reviewed: Yes Reason For Visit: ACUTE KIDNEY INJURY, ACUTE CORONARY SYNDROME Condition: Stable - Instructions Diet, Activity, Other Instructions: VISIT: You came to the hospital because you had intermittent pain in your chest and your blood pressure was high. We gave you medication to control your blood pressure. We kept you over night because your labs indicated your kidney numbers were elevated. We treated you with fluids and your kidneys improved. Please try to avoid fatty and greasy foods, limit your carbohydrates, and stop eating and avoid Fatty food try. Your last meal should be no later than 7pm. Please do not drink any juices, sodas or eat anything with excess sugar as your blood work indicates your diabetes is not well controlled. Also your weight in not in a healthy range , please cut down all the carbohydrates, such as paste, rice, potatoes. Cut down all your sugar intake such as juice, fruits limit to o ne per day, and eat lots of vegetables and increase the fiber intake. Drink at least 2 liters of fluid per day. You are now stable for discharge. Medications: Please continue taking all of your prescribed medications as directed. Stop taking Diovan 160/12.5mg HCTZ, instead take 320mg valsartan 320mg daily as per recommendations of tire room supervisor, dr Jimenez Please stop taking the Naproxen or any NSAIDs (Advil, Aleve, ibuprofen) until you've discussed your stomach problems with your primary doctor or table games manager. Follow up: Please follow up with Dr. Hernandez to check your blood pressure and BMP within 1 week after discharge Please follow up with Dr. Chew regarding your gastric reflux and recurrent gas after discharge. have your H pylori testing repeated within a week. Please follow up with Lucero King within a week of your discharge to have better control of your blood pressure. Referrals: Sohan Chew MD [Staff Physician] - 1 Week Chadd Ramírez MD [Staff Physician] - 1 Week Raul Hernandez MD [Primary Care Provider] - 1 Week Earl Kate MD [Staff Physician] - 1 Week Disposition: HOME - Home Medications Comprehensive Discharge Medication List: Ambulatory Orders Aspirin [ASA -] 81 mg PO DAILY 04/06/14 Insulin Glargine,Hum.rec.anlog [Lantus (10mL VIAL) -] 48 units SQ BID 04/06/14 Sitagliptin Phos/Metformin HCl [Janumet 50-1,000 mg Tablet] 1 tab PO BID 04/06/14 Atorvastatin Ca [Lipitor] 40 mg PO HS 01/24/20 Loratadine 10 mg PO DAILY 01/24/20 Metoprolol Succinate [Toprol Xl] 50 mg PO DAILY 01/24/20 Valsartan/Hydrochlorothiazide [Valsartan-Hctz 160-12.5 mg Tab] 1 each PO DAILY 01/24/20 This patient is new to me today: No Emergency Visit: Yes ED Registration Date: 01/24/20 Care time: The patient presented to the Emergency Department on the above date and was hospitalized for further evaluation of their emergent condition. Critical Care patient: No - Discharge Referral Referred to [facility] No ATTENDING PHYSICIAN STATEMENT I saw and evaluated the patient. I reviewed the resident's note and discussed the case with the resident. I agree with the resident's findings and plan as documented. SUBJECTIVE: OBJECTIVE: ASSESSMENT AND PLAN:
--- NOTE | 2020-01-24 15:02 | CONSULT ---
Consult Consult Specialty:: Nephrology Reason for Consultation:: RACHEL - History of Present Illness Chief Complaint: chest pain History of Present Illness: Pt is a 49 year old male with pmhx of dm, htn, hld, and arthritis who presents to the ER with chest pain. He says that it was sudden in onset and lasted for about 4 hours. He was found to have elevated replanter and I was called to evaluate him. He denies history of CKD. He says that he does not like to drink alot of water. He does take nsaids. He denies family hx of kidney disease. He denies shortness of breath or lower ext edema. His renal function did improve with hydration. - History Source History Provided By: Patient - Past Medical History Cardio/Vascular: Yes: HTN, Hyperlipdemia, Murmur Endocrine: Yes: Diabetes Mellitus - Past Surgical History Past Surgical History: Yes: None - Alcohol/Substance Use Hx Alcohol Use: No History of Substance Use: reports: None - Smoking History Smoking history: Former smoker Have you smoked in the past 12 months: No - Social History ADL: Independent History of Recent Travel: No Home Medications - Allergies Allergies/Adverse Reactions: Allergies Allergy/AdvReac Type Severity Reaction Status Date / Time No Known Allergies Allergy Verified 07/12/17 12:15 - Home Medications Home Medications: Ambulatory Orders Aspirin [ASA -] 81 mg PO DAILY 04/06/14 Insulin Glargine,Hum.rec.anlog [Lantus (10mL VIAL) -] 48 units SQ BID 04/06/14 Sitagliptin Phos/Metformin HCl [Janumet 50-1,000 mg Tablet] 1 tab PO BID 04/06/14 Atorvastatin Ca [Lipitor] 40 mg PO HS 01/24/20 Loratadine 10 mg PO DAILY 01/24/20 Metoprolol Succinate [Toprol Xl] 50 mg PO DAILY 01/24/20 Valsartan/Hydrochlorothiazide [Valsartan-Hctz 160-12.5 mg Tab] 1 each PO DAILY 01/24/20 Family Medical History Family History: Denies Review of Systems - Review of Systems Constitutional: reports: No Symptoms Eyes: reports: No Symptoms HENT: reports: No Symptoms Neck: reports: No Symptoms Cardiovascular: reports: Chest Pain Respiratory: reports: No Symptoms Genitourinary: reports: No Symptoms Musculoskeletal: reports: No Symptoms Integumentary: reports: No Symptoms Neurological: reports: No Symptoms Endocrine: reports: No Symptoms Hematology/Lymphatic: reports: No Symptoms Psychiatric: reports: No Symptoms Physical Exam Vital Signs: Vital Signs Temperature 98.2 F 01/24/20 09:54 Pulse Rate 78 01/24/20 09:54 Respiratory Rate 18 01/24/20 09:54 Blood Pressure 155/68 01/24/20 09:54 O2 Sat by Pulse Oximetry (%) 97 01/24/20 09:54 Constitutional: Yes: Calm Eyes: Yes: Conjunctiva Clear HENT: Yes: Atraumatic Neck: Yes: Supple Cardiovascular: Yes: S1, S2 Respiratory: Yes: CTA Bilaterally Gastrointestinal: Yes: Soft Renal/: Yes: WNL Musculoskeletal: Yes: WNL Edema: No Integumentary: Yes: WNL Neurological: Yes: Oriented Psychiatric: Yes: Oriented Labs: CBC, BMP 01/24/20 07:08 01/24/20 07:08 Imaging - Results Chest X-ray: Report Reviewed Assessment/Plan Current Medications Generic Name Dose Route Start Last Admin Trade Name Juliusq PRN Reason Stop Dose Admin Aspirin 81 mg 01/24/20 10:00 01/24/20 10:43 Asa - PO 81 mg DAILY CLARKE Administration Atorvastatin Calcium 40 mg 01/24/20 22:00 Lipitor - PO HS CLARKE Heparin Sodium (Porcine) 5,000 unit 01/24/20 06:00 01/24/20 06:19 Heparin - SQ 5,000 unit TID CLARKE Administration Hydrochlorothiazide 12.5 mg 01/24/20 10:00 Hctz - PO DAILY CLARKE Sodium Chloride 1,000 mls @ 83 mls/hr 01/23/20 23:15 01/23/20 23:42 Normal Saline - IV 83 mls/hr ASDIR CLARKE Administration Insulin Aspart 1 vial 01/24/20 07:00 01/24/20 06:19 Novolog Vial Sliding Scale - SQ 2 units ACHS CLARKE Administration Protocol Insulin Detemir 48 units 01/24/20 09:10 01/24/20 11:05 Levemir Vial SQ Not Given BID CLARKE Lactobacillus Acidophilus 1 tab 01/24/20 10:00 01/24/20 09:16 Bacid - PO 1 tab DAILY CLARKE Administration Metoprolol Succinate 50 mg 01/24/20 10:00 01/24/20 10:43 Toprol Xl - PO 50 mg DAILY CLARKE Administration Pantoprazole Sodium 40 mg 01/24/20 10:00 01/24/20 09:16 Protonix Iv IVPUSH 40 mg DAILY CLARKE Administration Valsartan 160 mg 01/24/20 10:00 Diovan - PO DAILY [facility] Laboratory Tests 01/23/20 01/23/20 01/24/20 19:15 19:40 07:08 BUN 27.5 H 25.3 H Creatinine 1.9 H 1.2 Urine Protein Negative Urine Glucose (UA) 3+ H Urine Blood Negative Impression 1. RACHEL 2. nsaid use 3. htn 4. dm 5. hld Plan - renal function improving - recommend for him not to use nsaids - encourage po fluid intake - can see pt in office - weight loss - renal function improved with hydration - pt on thiazide for htn, will need close follow up, consider holding until evaluated in office
[2020-01-24 15:19] VITALS: BP 150/84; PULSE 74; TEMP 98.7
[2020-01-24] MEDS ORDERED: ATORVASTATIN CA 40 MG TABLET (FP) PO SCH (22:00)
--- NOTE | 2020-01-27 10:23 | EKG ---
Test Reason : Blood Pressure : / mmHG Vent. Rate : 125 BPM Atrial Rate : 125 BPM P-R Int : 148 ms QRS Dur : 088 ms QT Int : 310 ms P-R-T Axes : 046 048 022 degrees QTc Int : 447 ms SINUS TACHYCARDIA POSSIBLE LEFT ATRIAL ENLARGEMENT NONSPECIFIC ST ABNORMALITY ABNORMAL ECG NO PREVIOUS ECGS AVAILABLE Confirmed by Bette Lugo ([id number]) on 01/27/2020 10:23:15 AM Referred By: Confirmed By:Bette Lugo
== END 2020-01-24 16:18 | disposition home or self-care (01) ==
LOC: JER 18:30 → INTOOBSV 21:26 → JERBED 21:26 → UNDOADMOB 21:26 → J4W 23:13 → JERBED 23:13 → J4W 01-24 09:54 → JERBED 01-24 09:54
PROVIDERS: ADMIT Internal Medicine; ATTEND Internal Medicine
PROC: 3E0337Z Introduction of Electrolytic and Water Balance Substance into Peripheral Vein, Percutaneous Approach (ICD-10-PCS; principal; 2020-01-24)
PROC: 3E013VG Introduction of Insulin into Subcutaneous Tissue, Percutaneous Approach (ICD-10-PCS; 2020-01-24)
PROC: 3E0234Z Introduction of Serum, Toxoid and Vaccine into Muscle, Percutaneous Approach (ICD-10-PCS; 2020-01-24)
PROC: 3E023GC Introduction of Other Therapeutic Substance into Muscle, Percutaneous Approach (ICD-10-PCS; 2020-01-24)
DX: N17.9 Acute kidney failure, unspecified (principal); I16.0 Hypertensive urgency; Z79.1 Long term (current) use of non-steroidal anti-inflammatories (NSAID); I10 Essential (primary) hypertension; E11.9 Type 2 diabetes mellitus without complications; E78.5 Hyperlipidemia, unspecified; M13.88 Other specified arthritis, other site; M62.82 Rhabdomyolysis; Z29.9 Encounter for prophylactic measures, unspecified; E66.01 Morbid (severe) obesity due to excess calories; Z87.891 Personal history of nicotine dependence; Z68.34 Body mass index [BMI] 34.0-34.9, adult
CPT/HCPCS: 36415; 71045-TC-FY; 80053; 80061; 81003; 82010; 82550; 82553; 82962; 83036; 83721; 83735; 83880; 84100; 84443; 84484; 85025; 87086; 93005; 93010; 93306-TC; 96372; 96374; 96375; 99285-25; G0378; J1644; U0003

== ENCOUNTER 2020-03-06 11:03 | Emergency (ER) | payer OTHER ==
[2020-03-06 11:08] VITALS: TEMP 97.2; BMI 34.2
[2020-03-06] MEDS ORDERED: SODIUM CHLORIDE 1,000 ML IV ONE (13:12)
[2020-03-06 13:41] VITALS: PULSE 95
[2020-03-06 13:45] LABS: HEMATOCRIT 42.9 % (35.4-49); HEMOGLOBIN 14.5 GM/dL (11.7-16.9); MCHC 33.9 g/dl (32.0-35.9); MEAN CELL VOLUME 79.5 fl (80-96); MEAN PLT VOLUME 9.3 fl (7.5-11.1); PLATELET COUNT 194 K/MM3 (134-434); RBC 5.39 M/mm3 (4.00-5.60); WHITE BLOOD COUNT 7.2 K/mm3 (4.0-10.0)
[2020-03-06 14:26] LABS: ALBUMIN 4.4 g/dl (3.4-5.0); BILIRUBIN,TOTAL 0.7 mg/dL (0.2-1); BLOOD UREA NITROGEN 20.6 mg/dL (7-18); CALCIUM 8.7 mg/dL (8.5-10.1); CREATININE 1.2 mg/dL (0.55-1.3); POTASSIUM 3.4 mmol/L (3.5-5.1); TOT PROT 7.8 g/dl (6.4-8.2)
--- NOTE | 2020-03-06 14:46 | EKG ---
Test Reason : Blood Pressure : / mmHG Vent. Rate : 116 BPM Atrial Rate : 116 BPM P-R Int : 170 ms QRS Dur : 090 ms QT Int : 324 ms P-R-T Axes : 048 050 026 degrees QTc Int : 450 ms SINUS TACHYCARDIA NONSPECIFIC ST ABNORMALITY Confirmed by RHONA CAREY MD ([id number]) on 03/06/2020 2:45:45 PM Referred By: Confirmed By:RHONA CAREY MD
--- NOTE | 2020-03-06 16:22 | PDOC ---
Documentation entered by Tiffany Zavaleta SCRIBE, acting as scribe for Charles Naylor MD. Charles Naylor MD: This documentation has been prepared by the roulaibeWaqar Lincy, SCRIBE, under my direction and personally reviewed by me in its entirety. I confirm that the documentation accurately reflects all work, treatment, procedures, and medical decision making performed by me. History of Present Illness - General Chief Complaint: Blood Pressure Problem Stated Complaint: BP PROBLEMS, TACHYCARDIA Time Seen by Provider: 03/06/20 11:28 History Source: Patient Exam Limitations: No Limitations - History of Present Illness Initial Comments: 03/06/20 13:25 The patient is a 49-year-old male with a past medical history significant for HTN and HLD who presents to the emergency department with hypertension. The patient reports he was fine this morning, had coffee and was watching soccer when he saw a blurry line on the screen. The patient reports he felt like his blood pressure was elevated, so he checked it and recalls the blood pressure and heart rate was elevated. Denies chest pain, shortness of breath, nausea, vomiting, diaphoresis, lightheadedness. The patient reports his blood pressure is well controlled, denies any changes in medication dosage or new medication. Denies fever, chills, cough, or leg swelling. Past History - Medical History Allergies/Adverse Reactions: Allergies Allergy/AdvReac Type Severity Reaction Status Date / Time No Known Allergies Allergy Verified 03/06/20 11:08 Home Medications: Ambulatory Orders Aspirin [ASA -] 81 mg PO DAILY 04/06/14 Insulin Glargine,Hum.rec.anlog [Lantus (10mL VIAL) -] 48 units SQ BID 04/06/14 Sitagliptin Phos/Metformin HCl [Janumet 50-1,000 mg Tablet] 1 tab PO BID 04/06/14 Atorvastatin Ca [Lipitor] 40 mg PO HS 01/24/20 Loratadine 10 mg PO DAILY 01/24/20 Metoprolol Succinate [Toprol Xl] 50 mg PO HS 01/24/20 Valsartan 320 mg PO DAILY #30 tablet 01/24/20 Anemia: No Asthma: No Cancer: No Cardiac Disorders: No CVA: No COPD: No CHF: No Dementia: No Diabetes: Yes GI Disorders: No Disorders: No HTN: Yes Hypercholesterolemia: No Liver Disease: No Seizures: No Thyroid Disease: No - Immunization History Immunization Up to Date: Yes - Psycho-Social/Smoking History Smoking History: Never smoked Have you smoked in the past 12 months: No Information on smoking cessation initiated: Yes - Substance Abuse Hx (Audit-C & DAST Scrn) How often the patient has a drink containing alcohol: Never Score: In Men: 4 or > Positive; In Women: 3 or > Positive: 0 Screen Result (Pos requires Nsg. Audit-10AR): Negative In the last yr the pt used illegal drug/Rx for NonMed reason: No Score: Yes response is considered Positive: 0 Screen Result (Positive result requires Nsg. DAST-10): Negative Review of Systems - Review of Systems Able to Perform ROS?: Yes Comments:: 03/06/20 13:14 Constitutional - Pt denies Fever, chills, weakness, HEENT: +blurry line on the screen. Denies any other vision changes, sore throat Respiratory: Denies cough, sob, hemoptysis Cardiac: +elevated blood pressure and heart rate. denies chest pain, diaphoresis, palpitations, lightheadedness, leg swelling Abd/GI: denies abd pain, nausea, vomiting, blood per rectum, melena, diarrhea : denies dysuria, frequency, discharge Musculoskeletal - denies back pain, joint swelling skin - denies bruising, erythema, rash neurological: denies headache, numbness, focal weakness, tingling, ataxia, weakness hematologic: denies anemia, easy bruising, easy bleeding *Physical Exam - Vital Signs Last Vital Signs Temp Pulse Resp BP Pulse Ox 97.2 F L 107 H 18 159/83 99 03/06/20 11:06 03/06/20 12:51 03/06/20 12:51 03/06/20 12:51 03/06/20 12:51 - Physical Exam 03/06/20 13:14 GENERAL: The patient is awake, alert, and fully oriented, Nontoxic - in no acute distress. HEAD: Normocephalic, atraumatic. EYES: extraocular movements intact, sclera anicteric, conjunctiva clear. ENT: Normal voice, Moist mucous membranes. NECK: Normal range of motion, supple without lymphadenopathy, JVD, or masses. LUNGS: Breath sounds equal, clear to auscultation bilaterally. No wheezes, no crackles, no rales. HEART: Regular rate and rhythm, normal S1 and S2 without murmur, rub or gallop. ABDOMEN: Soft, nontender, normoactive bowel sounds. No guarding, no rebound. No masses. EXTREMITIES: Normal range of motion, no edema. No clubbing or cyanosis. No cords, erythema, or tenderness. NEUROLOGICAL: No facial asymmetry, Normal speech, normal gait. PSYCH: Normal mood, normal affect. SKIN: Warm, Dry, normal turgor, no rashes or lesions noted. ED Treatment Course - LABORATORY CBC & Chemistry Diagram: 03/06/20 11:05 03/06/20 11:05 Medical Decision Making - Medical Decision Making 03/06/20 16:22 The patient's blood work was reviewed, unremarkable patient feeling improved will discharge patient with outpatient follow-up with his primary care doctor as well as instructions to keep a log of his blood pressures. I discussed the physical exam findings, ancillary test results and final diagnoses with the patient. I answered all of the patient's questions. The patient was satisfied with the care received and felt comfortable with the discharge plan and treatment plan. The patient will call their primary care physician within 24 hours to arrange follow-up and will return to the Emergency Department with any new, persistent or worsening symptoms. Discharge - Discharge Information Problems reviewed: Yes Clinical Impression/Diagnosis: Hypertension Qualifiers: Hypertension type: unspecified Qualified Code(s): I10 - Essential (primary) hypertension Condition: Improved Disposition: HOME - Admission No - Follow up/Referral Referrals: Raul Hensley [Primary Care Provider] - - Patient Discharge Instructions Patient Printed Discharge Instructions: DI for High Blood Pressure Additional Instructions: Return to the emergency department immediately with ANY new, persistent or worsening symptoms. Keep a log of your blood pressures, follow-up with your primary care doctor for reevaluation of your blood pressure You MUST call and follow up with your doctor tomorrow for further evaluation of your symptoms. Results were discussed with you. Please make sure your doctor rev iews the results of your emergency evaluation. Your Emergency Department visit is not complete without a follow up with your doctor. Print Language: SWEDISH - Post Discharge Activity
[2020-03-06 17:04] VITALS: BP 144/81
== END 2020-03-06 17:00 | disposition home or self-care (01) ==
LOC: JER 11:03
PROC: 3E0337Z Introduction of Electrolytic and Water Balance Substance into Peripheral Vein, Percutaneous Approach (ICD-10-PCS; principal; 2020-03-06)
DX: I10 Essential (primary) hypertension (principal)
CPT/HCPCS: 36415; 80053; 85027; 93005; 93010; 99284-25

== ENCOUNTER 2020-03-26 06:49 | Emergency (ER) | payer OTHER ==
[2020-03-26 07:14] VITALS: TEMP 98.6; BMI 34.2
--- NOTE | 2020-03-26 07:30 | PDOC ---
History of Present Illness - General Chief Complaint: Blood Pressure Problem Stated Complaint: BLOOD PRESSURE PROBLEM Time Seen by Provider: 03/26/20 07:29 History Source: Patient, Old Records Exam Limitations: No Limitations - History of Present Illness Initial Comments: 03/26/20 07:29 Ashok Jain is a 49M with PMH HTN,HLD, IDDM, presenting with high blood pressure and palpitations. Patient reports this AM woke up feeling tired, had an episode of teeth chattering and palpitations. Denies syncope, vision changes, chest pain, SOB, abd pain, urinary symptoms, fevers, chills, nausea/vomiting. Checks BP several times per day, in AM and twice before leaving work, normally 140/90. This morning checked BP and SBP 170. Takes insulin 2x per day in AM and at night. PMD Dr. Hernandez, recently started on amlodipine 5mg in addition to his valsartan 320mg and metoprolol 25mg. Did not eat breakfast, did not take AM medications. Has had intermittent sensation of feeling very bloated, eating and drinking well without constipation, has been evaluated by Dr. Chew outpatient with normal colonoscopy, recommended that he stop eating dairy but has still been doing so. No history of hyperthyroidism or AFIB, has been evaluated for thyroid in the past, some sort of abnormal finding on US but normal TSH. Here recently for similar concern regarding HTN, discharged with normal labs and outpatient f/u. Last admission in December for chest pain and ACS evaluation noted to have RACHEL that resolved with PO fluids, has not f/u with [facility] outpatient. NKDA. Denies alcohol/drugs/tobacco. Past History - Medical History Allergies/Adverse Reactions: Allergies Allergy/AdvReac Type Severity Reaction Status Date / Time No Known Allergies Allergy Verified 03/26/20 07:08 Home Medications: Ambulatory Orders Aspirin [ASA -] 81 mg PO DAILY 04/06/14 Insulin Glargine,Hum.rec.anlog [Lantus (10mL VIAL) -] 48 units SQ BID 04/06/14 Sitagliptin Phos/Metformin HCl [Janumet 50-1,000 mg Tablet] 1 tab PO BID 04/06/14 Atorvastatin Ca [Lipitor] 40 mg PO HS 01/24/20 Loratadine 10 mg PO DAILY 01/24/20 Metoprolol Succinate [Toprol Xl] 50 mg PO HS 01/24/20 Valsartan 320 mg PO DAILY #30 tablet 01/24/20 Anemia: No Asthma: No Cancer: No Cardiac Disorders: No CVA: No COPD: No CHF: No Dementia: No Diabetes: Yes GI Disorders: No Disorders: No HTN: Yes Hypercholesterolemia: No Liver Disease: No Seizures: No Thyroid Disease: No - Immunization History Immunization Up to Date: Yes - Psycho-Social/Smoking History Smoking History: Never smoked Have you smoked in the past 12 months: No - Substance Abuse Hx (Audit-C & DAST Scrn) How often the patient has a drink containing alcohol: Never Score: In Men: 4 or > Positive; In Women: 3 or > Positive: 0 Screen Result (Pos requires Nsg. Audit-10AR): Negative In the last yr the pt used illegal drug/Rx for NonMed reason: No Score: Yes response is considered Positive: 0 Screen Result (Positive result requires Nsg. DAST-10): Negative Review of Systems - Review of Systems Able to Perform ROS?: Yes Constitutional: Yes: Weakness HEENTM: No: Symptoms Reported Respiratory: No: Symptoms reported Cardiac (ROS): No: Symptoms Reported ABD/GI: No: Constipated, Nausea, Poor Appetite, Poor Fluid Intake, Vomiting, Abdominal cramping : No: Symptoms Reported Musculoskeletal: No: Symptoms Reported Integumentary: No: Symptoms Reported Neurological: No: Symptoms reported Endocrine: No: Symptoms Reported Hematologic/Lymphatic: No: Symptoms Reported All Other Systems: Reviewed and Negative *Physical Exam - Vital Signs Last Vital Signs Temp Pulse Resp BP Pulse Ox 98.6 F 96 H 18 152/86 100 03/26/20 07:00 03/26/20 07:00 03/26/20 07:00 03/26/20 07:00 03/26/20 07:00 - Physical Exam 03/26/20 07:55 Repeat VS in room with patient sitting upright and calm, 125/86 with HR 87, satting 100% on RA. General Appearance: Yes: Nourished, Appropriately Dressed, Other (sitting in bed in NAD, VSS). No: Apparent Distress HEENT: positive: EOMI, DOMO, Normal Voice, Symmetrical, Pharynx Normal, Hearing Grossly Normal. negative: Scleral Icterus (R), Scleral Icterus (L), Pharyngeal Erythema, Tonsillar Exudate, Tonsillar Erythema Neck: positive: Trachea midline, Normal Thyroid, Supple. negative: Tender, Rigid, Lymphadenopathy (R), Lymphadenopathy (L), Tender lateral, Tender midline Respiratory/Chest: positive: Lungs Clear, Normal Breath Sounds. negative: Chest Tender, Respiratory Distress, Accessory Muscle Use, Decreased Breath Sounds, Crackles, Rales, Rhonchi, Stridor, Wheezing Cardiovascular: positive: Regular Rhythm, Regular Rate. negative: Murmur, Tachycardia Gastrointestinal/Abdominal: positive: Normal Bowel Sounds, Flat, Soft. negative: Tender, Organomegaly, Pulsatile Mass, Guarding, Rebound Musculoskeletal: positive: Normal Inspection. negative: CVA Tenderness, Decreased Range of Motion Extremity: positive: Normal Capillary Refill, Normal Inspection, Normal Range of Motion, Pelvis Stable. negative: Tender, Pedal Edema, Swelling, Calf Tenderness Integumentary: positive: Normal Color, Dry, Warm. negative: Cyanotic, Erythema, Cold, Clammy, Diaphoresis Neurologic: positive: Fully Oriented, Alert, Normal Mood/Affect, Normal Response, Motor Strength 5/5, Other (gait normal) Medical Decision Making - Medical Decision Making 03/26/20 07:30 Patient has PMH HTN, IDDM, HLD, and multiple ED visits related to HTN in the last month presenting with palpitations and HTN. Repeat VS in ED 125/86 with HR 87, in NAD, PE unremarkable. Unclear etiology for palpitations, has been seen for thyroid in the past but no abnormalities. Ddx includes arrhythmia, hyperthyroidism, hypoglycemia. Unlikely to be true cardiac etiology, stable VS, no chest pain, asymptomatic at this time. Getting ECG and BGM for evaluation of cardiac pathology and hypoglycemia. 03/26/20 08:33 BGM 196, no hypoglycemia, can take AM insulin ECG NSR with sinus arrhythmia, HR 77, QTc 420, no ARASH/D, non-specific TWI in III consistent with prior. Stable for discharge home with cardiology and PMD f/u. VSS, no HTN urgency or emergency, no other concerning symptoms at this time. Discharge - Discharge Information Problems reviewed: Yes Clinical Impression/Diagnosis: Palpitations Hypertension Qualifiers: Hypertension type: essential hypertension Qualified Code(s): I10 - Essential (primary) hypertension Condition: Stable Disposition: HOME - Follow up/Referral Referrals: Davy Gaines MD [Staff Physician] - Isaías Rodrigues MD [Staff Physician] - Puneet Pacheco MD [Staff Physician] - - Patient Discharge Instructions Patient Printed Discharge Instructions: DI for High Blood Pressure, How to Monitor Your Blood Pressure at Home Additional Instructions: Today you were seen for high blood pressure and palpitations. Your blood pressure in the emergency room is normal at 125/86 without taking any medications. At home, be mindful that your blood pressure changes throughout the day, and can go up or down depending on your stress level and the time of day. Check your blood pressure once at day at the same time every day, and write down what your blood pressure is every day to show to your doctor. Checking more than this is unnecessary and may cause you to be more anxious, and being anxious increases your blood pressure. At home, take your blood pressure medications as prescribed, and see your primary doctor in the next week for further care. We have provided a referral to a logistics and planning manager, please see them in the next week to follow-up your symptoms, or speak to your primary doctor about seeing a logistics and planning manager with [facility]. If you experience any chest pain, difficulty breathing, changes to your vision, difficulty walking, or have any other new or concerning symptoms, please return to the emergency room. - Post Discharge Activity Work/Back to School Note: Back to Work
--- NOTE | 2020-03-26 08:09 | PDOC ---
Attending Attestation - Resident Resident Name: Marc Quijano - ED Attending Attestation I have performed the following: I have examined & evaluated the patient, The case was reviewed & discussed with the resident, I agree w/resident's findings & plan, Exceptions are as noted - HPI HPI: 03/26/20 08:06 49 M with h/o HTN, HLD, IDDM, presenting to ED with elevated BP. Pt states that he awoke this morning and felt his teeth chattering. He denies fevers or chills but states he was cold. Pt then checked his BP and found it to be 170s systolic, prompting him to come to the ED. Pt did not take his BP meds today. Pt denies CP/SOB. Denies KAMARA. - Physicial Exam PE: 03/26/20 08:08 GENERAL: Awake, alert, and fully oriented, in no acute distress. HEAD: No signs of trauma EYES: PERRLA, EOMI, sclera anicteric, conjunctiva clear ENT: Auricles normal inspection, hearing grossly normal, nares patent, oropharynx clear without exudates. Moist mucosa NECK: Nontender, no stepoffs, Normal ROM, supple, no lymphadenopathy, JVD, or masses LUNGS: Breath sounds equal, clear to auscultation bilaterally. No wheezes, and no crackles HEART: Regular rate and rhythm, normal S1 and S2, no murmurs, rubs or gallops ABDOMEN: Soft, nontender, normoactive bowel sounds. No guarding, no rebound. No masses EXTREMITIES: Normal range of motion, no edema. No clubbing or cyanosis. No cords, erythema, or tenderness NEUROLOGICAL: Cranial nerves II through XII intact. 5/5 strength and sensation in all extremities, Normal speech, normal gait, normal cerebellar function SKIN: Warm, Dry, normal turgor, no rashes or lesions noted. - Medical Decision Making 03/26/20 08:08 49 M with elevated BP, now improved without intervention. - F/u PMD - Cards referral Pt is well appearing, with normal vitals. Clinically stable for DC at this time. I discussed the physical exam findings, ancillary test results and final diagnoses with the patient. I answered all of the patient's questions. The patient was satisfied with the care received and felt comfortable with the discharge plan and treatment plan. The patient agrees to follow up with the primary care physician within 24-72 hours. Discharge - Discharge Information Problems reviewed: Yes Clinical Impression/Diagnosis: Palpitations Hypertension Qualifiers: Hypertension type: essential hypertension Qualified Code(s): I10 - Essential (primary) hypertension Condition: Stable Disposition: HOME - Follow up/Referral - Patient Discharge Instructions Patient Printed Discharge Instructions: DI for High Blood Pressure, How to Monitor Your Blood Pressure at Home Additional Instructions: Today you were seen for high blood pressure and palpitations. Your blood pressure in the emergency room is normal at 125/86 without taking any medications. At home, be mindful that your blood pressure changes throughout the day, and can go up or down depending on your stress level and the time of day. Check your blood pressure once at day at the same time every day, and write down what your blood pressure is every day to show to your doctor. Checking more than this is unnecessary and may cause you to be more anxious. At home, take your blood pressure medications as prescribed, and see your primary doctor in the next week for further care. If you experience any chest pain, difficulty breathing, changes to your vision, difficulty walking, or have any other new or concerning symptoms, please return to the emergency room. - Post Discharge Activity
[2020-03-26 10:31] VITALS: BP 140/62; PULSE 85
--- NOTE | 2020-03-27 10:42 | EKG ---
Test Reason : Blood Pressure : / mmHG Vent. Rate : 077 BPM Atrial Rate : 077 BPM P-R Int : 154 ms QRS Dur : 086 ms QT Int : 372 ms P-R-T Axes : 031 018 016 degrees QTc Int : 420 ms NORMAL SINUS RHYTHM WITH SINUS ARRHYTHMIA NORMAL ECG WHEN COMPARED WITH ECG OF 06-MAR-2020 11:13, VENT. RATE HAS DECREASED BY 39 BPM Confirmed by RHONA CAREY MD ([id number]) on 03/27/2020 10:42:02 AM Referred By: Confirmed By:RHONA CAREY MD
== END 2020-03-26 10:32 | disposition home or self-care (01) ==
LOC: JER 06:49
DX: R00.2 Palpitations (principal); I10 Essential (primary) hypertension
CPT/HCPCS: 82962; 93005; 93010; 99283-25

== ENCOUNTER 2020-04-05 04:55 | Emergency (ER) | payer OTHER ==
[2020-04-05 05:10] VITALS: TEMP 98.2; BMI 34.2
--- NOTE | 2020-04-05 05:10 | PDOC ---
History of Present Illness - General Chief Complaint: Chest Pain Stated Complaint: CHEST PAIN - History of Present Illness Initial Comments: 49 YOM h/o htn presents with chest pain and high blood pressure since 4 days. Pain is primarily located on left side underneath rib cage. At worst it is 10/10, described as a sharp pain. Tends to be worse with eating. Patient takes tylenol to control pain. Currently pain is 1/10. He notes that when he has these episodes of pain he measures his blood pressure which reads to the 180s and above. He currently denies SOB, fever, chills, N/V/D, blood in stool, blood in urine. Constitutional: No Weight Change, No Fever, No Chills, No Night Sweats, No Fatigue, No Malaise ENT/Mouth: No Hearing Changes, No Ear Pain, No Nasal Congestion, No Sinus Pain, No Hoarseness, No sore throat, No Rhinorrhea, No Swallowing Difficulty Eyes: No Eye Pain, No Swelling, No Redness, No Foreign Body, No Discharge, No Vision Changes Cardiovascular: No Chest Pain, No SOB, No PND, No Dyspnea on Exertion, No Orthopnea, No Claudication, No Edema, No Palpitations Respiratory: No Cough, No Sputum, No Wheezing, No Smoke Exposure, No Dyspnea Gastrointestinal: No Nausea, No Vomiting, No Diarrhea, No Constipation, No Pain, No Heartburn, No Anorexia, No Dysphagia, No Hematochezia, No Melena, No Flatulence, No Jaundice Genitourinary: No DUB, No Dyspareunia, No Dysuria, No Urinary Frequency, No Hematuria, No Urinary Incontinence, No Urgency, No Flank Pain, No Urinary Flow Changes, No Hesitancy Musculoskeletal: No Arthralgias, No Myalgias, No Joint Swelling, No Joint Stiffness, No Back Pain, No Neck Pain, No Injury History Skin: No Skin Lesions, No Pruritis, No Hair Changes, No Breast/Skin Changes, No Nipple Discharge Neuro: No Weakness, No Numbness, No Paresthesias, No Loss of Consciousness, No Syncope, No Dizziness, No Headache, No Coordination Changes, No Recent Falls Psych: No Anxiety/Panic, No Depression, No Insomnia, No Personality Changes, No Delusions, No Rumination, No SI/HI/AH/VH, No Social Issues, No Memory Changes, No Violence/Abuse Hx., No Eating Concerns Heme/Lymph: No Bruising, No Bleeding, No Transfusions History, No Lymphadenopathy Endocrine: No Polyuria, No Polydipsia, No Temperature Intolerance Past History - Medical History Allergies/Adverse Reactions: Allergies Allergy/AdvReac Type Severity Reaction Status Date / Time No Known Allergies Allergy Verified 04/05/20 05:08 Home Medications: Ambulatory Orders Aspirin [ASA -] 81 mg PO DAILY 04/06/14 Insulin Glargine,Hum.rec.anlog [Lantus (10mL VIAL) -] 48 units SQ BID 04/06/14 Sitagliptin Phos/Metformin HCl [Janumet 50-1,000 mg Tablet] 1 tab PO BID 04/06/14 Atorvastatin Ca [Lipitor] 40 mg PO HS 01/24/20 Loratadine 10 mg PO DAILY 01/24/20 Metoprolol Succinate [Toprol Xl] 50 mg PO HS 01/24/20 Valsartan 320 mg PO DAILY #30 tablet 01/24/20 Anemia: No Asthma: No Cancer: No Cardiac Disorders: No CVA: No COPD: No CHF: No Dementia: No Diabetes: Yes GI Disorders: No Disorders: No HTN: Yes Hypercholesterolemia: No Liver Disease: No Seizures: No Thyroid Disease: No - Immunization History Immunization Up to Date: Yes - Psycho-Social/Smoking History Smoking History: Never smoked Have you smoked in the past 12 months: No *Physical Exam - Physical Exam General Appearance: Yes: Nourished, Appropriately Dressed, Moderate Distress, Other (patient appears generally anxious) HEENT: positive: EOMI, DOMO, Normal ENT Inspection, Normal Voice, Symmetrical, TMs Normal, Pharynx Normal Neck: positive: Trachea midline, Normal Thyroid Respiratory/Chest: positive: Chest Tender, Lungs Clear, Normal Breath Sounds Cardiovascular: positive: Regular Rhythm, Regular Rate, S1, S2 Gastrointestinal/Abdominal: positive: Normal Bowel Sounds, Flat, Soft Musculoskeletal: positive: Normal Inspection Extremity: positive: Normal Capillary Refill, Normal Inspection Integumentary: positive: Normal Color, Dry, Warm Neurologic: positive: research epidemiologist II-XII NML intact, Fully Oriented, Alert, Normal Mood/Affect, Normal Response, Motor Strength 5/5 ED Treatment Course - LABORATORY CBC & Chemistry Diagram: 04/05/20 05:15 04/05/20 05:15 Medical Decision Making - Medical Decision Making 49 YOM h/o htn presenting with chest pain - vitals wnl - exam unremarkable - EKG, CBC, CMP, cardiac profile, CXR, admit for tele obs 04/05/20 06:24 04/05/20 06:39 labs and imaging wnl will admit to tele obs for chest pain Discharge - Follow up/Referral Referrals: Raul Hernandez MD [Primary Care Provider] - - Patient Discharge Instructions - Post Discharge Activity
[2020-04-05] MEDS ORDERED: amLODIPine BESYLATE 5 MG TABLET (FP) PO ONE (05:28)
[2020-04-05] MEDS ORDERED: ASPIRIN 81 MG CHEWABLE TABLETS PO ONE (05:29)
--- NOTE | 2020-04-05 05:31 | PDOC ---
Attending Attestation - Resident Resident Name: Flaco Mcfarlane - ED Attending Attestation I have performed the following: I have examined & evaluated the patient, The case was reviewed & discussed with the resident, I agree w/resident's findings & plan - HPI HPI: 04/05/20 05:32 Pt comes with DM and HTN and chest pain x 4 days and uncontrolled blood pressure even tho he takes 3 meds for BP. Pt is overweight. He works at the [employer] dept at [employer]. - Physicial Exam PE: 04/05/20 05:33 Normal exam Pt has no CP at this moment. heart S1S2 tachycardia lungs CTA B abd soft NT ND no flank pain no fever no rashes pt is uipset and driving his BP up. When we calm him down, his BP goes down to 154 then 137/85 - Medical Decision Making 04/05/20 05:38 Pt is stressed out about work. He keeps calling out from work 04/05/20 06:20 Pt has normal trop; elevated CPK 04/05/20 20:39 Pt signed out to the day team. Discharge - Discharge Information Problems reviewed: Yes Clinical Impression/Diagnosis: Hypertension Qualifiers: Hypertension type: unspecified Qualified Code(s): I10 - Essential (primary) hypertension Chest pain Qualifiers: Chest pain type: unspecified Qualified Code(s): R07.9 - Chest pain, unspecified Condition: Improved Disposition: HOME - Additional Discharge Information Prescriptions: Calcium Carbonate/Simethicone [Maalox Advanced Tab Chew] 1 each PO Q6H PRN #30 tab.chew PRN Reason: Gas - Follow up/Referral Referrals: Raul Hernandez MD [Primary Care Provider] - - Patient Discharge Instructions Patient Printed Discharge Instructions: DI for Atypical Chest Pain Additional Instructions: You were seen with chest pain. Your initial EKG showed an elevated heart rate, but your repeat EKG and lab work did not show any concerning findings. Take your Maalox every 6 hours as needed for gas. Please follow up with your primary care doctor, your metallurgical engineering teacher, and your GI doctor within one week. Return to the ER if you develop new or worsening symptoms. - Post Discharge Activity
[2020-04-05 05:37] LABS: BASO % 0.6 % (0-2.0); EOS % 5.5 % (0-4.5); HEMATOCRIT 40.4 % (35.4-49); HEMOGLOBIN 13.9 GM/dL (11.7-16.9); LYMPH % 41.1 % (8-40); MCH 27.3 pg (25.7-33.7); MCHC 34.5 g/dl (32.0-35.9); MEAN CELL VOLUME 79.4 fl (80-96); MEAN PLT VOLUME 8.2 fl (7.5-11.1); MONO % 6.6 % (3.8-10.2); NEUT % 46.2 % (42.8-82.8); PLATELET COUNT 198 K/MM3 (134-434); RBC 5.09 M/mm3 (4.00-5.60); WHITE BLOOD COUNT 8.2 K/mm3 (4.0-10.0)
[2020-04-05] MEDS ORDERED: ASPIRIN 81 MG CHEWABLE TABLETS ONE (05:43)
[2020-04-05] MEDS ORDERED: amLODIPine BESYLATE 5 MG TABLET (FP) ONE (05:44)
[2020-04-05] MEDS ORDERED: MAG HYDROX/AL HYDROX/SIMETH 30 ML UNIT-DOSE CUP PO ONE (05:48)
[2020-04-05] MEDS ORDERED: FAMOTIDINE 20 MG/50 ML IVPB 20 MG/50 ML MG IVPB ONE ×2 (05:48→05:55)
[2020-04-05] MEDS ORDERED: MAG HYDROX/AL HYDROX/SIMETH 30 ML UNIT-DOSE CUP ONE (05:55)
[2020-04-05 05:57] LABS: INR 0.91 (0.83-1.09); PROTHROMBIN TIME (PATIENT) 10.7 SEC (9.7-13.0)
[2020-04-05 06:18] LABS: ALBUMIN 4.2 g/dl (3.4-5.0); ALK PHOS 46 U/L (45-117); ANION GAP 7 MMOL/L (8-16); BILIRUBIN,TOTAL 0.5 mg/dL (0.2-1); BLOOD UREA NITROGEN 23.6 mg/dL (7-18); CALCIUM 8.6 mg/dL (8.5-10.1); CHLORIDE 103 mmol/L (98-107); CO2 26 mmol/L (21-32); CREATININE 1.1 mg/dL (0.55-1.3); GLUCOSE,RANDOM 129 mg/dL (74-106); POTASSIUM 4.6 mmol/L (3.5-5.1); SGOT/AST 32 U/L (15-37); SGPT/ALT 42 U/L (13-61); SODIUM 136 mmol/L (136-145); TOT PROT 7.5 g/dl (6.4-8.2)
--- NOTE | 2020-04-05 07:45 | PDOC ---
*Physical Exam - Vital Signs Last Vital Signs Temp Pulse Resp BP Pulse Ox 98.2 F 87 20 131/82 97 04/05/20 05:08 04/05/20 06:35 04/05/20 06:35 04/05/20 06:35 04/05/20 06:35 ED Treatment Course - LABORATORY CBC & Chemistry Diagram: 04/05/20 05:15 04/05/20 05:15 - ADDITIONAL ORDERS Additional order review: Laboratory Results 04/05/20 04/05/20 05:15 05:15 PT with INR 10.70 INR 0.91 Sodium 136 Potassium 4.6 Chloride 103 Carbon Dioxide 26 Anion Gap 7 L BUN 23.6 H Creatinine 1.1 Est GFR (CKD-EPI)AfAm 89.61 Est GFR (CKD-EPI)NonAf 77.32 Random Glucose 129 H Calcium 8.6 Total Bilirubin 0.5 AST 32 ALT 42 Alkaline Phosphatase 46 Creatine Kinase 336 H Creatine Kinase Index 1.2 CK-MB (CK-2) 4.2 H Troponin I < 0.02 Total Protein 7.5 Albumin 4.2 04/05/20 05:15 RBC 5.09 MCV 79.4 L MCHC 34.5 RDW 13.0 MPV 8.2 D Neutrophils % 46.2 Lymphocytes % 41.1 H Monocytes % 6.6 Eosinophils % 5.5 H Basophils % 0.6 - Medications Given in the ED: ED Medications Discontinued Medications Generic Name Dose Route Start Last Admin Trade Name Freq PRN Reason Stop Dose Admin Al Hydroxide/Mg Hydroxide 30 ml 04/05/20 05:48 04/05/20 06:32 Mylanta Oral Suspension - PO 04/05/20 05:49 30 ml ONCE ONE Administration Amlodipine Besylate 5 mg 04/05/20 05:28 04/05/20 05:52 Norvasc - PO 04/05/20 05:29 5 mg ONCE ONE Administration Aspirin 324 mg 04/05/20 05:29 04/05/20 05:52 Asa - PO 04/05/20 05:30 324 mg ONCE ONE Administration Famotidine/Sodium Chloride 20 mg in 50 mls @ 100 mls/hr 04/05/20 05:48 04/05/20 06:32 Pepcid 20 Mg Premixed Ivpb - IVPB 04/05/20 06:17 100 mls/hr ONCE ONE Administration Medical Decision Making - Medical Decision Making 04/05/20 07:42 Received as signout from the night team. Plan to repeat troponin and discharge for further outpatient management. Mr. Jain notes that he has an existing GI appointment with Dr. Chew on Apr 08 and is able to make an appointment with Dr. Pacheco (cardiology) for better blood pressure management. He requests Maalox prescription as it made him feel better. Will follow up repeat troponin, dc for further outpatient management. 04/05/20 09:23 Repeat trop is negative. Incorrectly appears within [employer] that repeat trop was at 0530, when it was actually drawn at approximately 0900 and resulted at approximately 0920. Will dc for further outpatient management. Discharge - Discharge Information Problems reviewed: Yes Clinical Impression/Diagnosis: Hypertension Qualifiers: Hypertension type: unspecified Qualified Code(s): I10 - Essential (primary) hypertension Chest pain Qualifiers: Chest pain type: unspecified Qualified Code(s): R07.9 - Chest pain, unspecified Condition: Improved Disposition: HOME - Admission No - Additional Discharge Information Prescriptions: Calcium Carbonate/Simethicone [Maalox Advanced Tab Chew] 1 each PO Q6H PRN #30 tab.chew PRN Reason: Gas - Follow up/Referral Referrals: Raul Hernandez MD [Primary Care Provider] - - Patient Discharge Instructions Patient Printed Discharge Instructions: DI for Atypical Chest Pain Additional Instructions: You were seen with chest pain. Your initial EKG showed an elevated heart rate, b ut your repeat EKG and lab work did not show any concerning findings. Take your Maalox every 6 hours as needed for gas. Please follow up with your primary care doctor, your pony trimmer, and your GI doctor within one week. Return to the ER if you develop new or worsening symptoms. - Post Discharge Activity
[2020-04-05 09:49] VITALS: BP 119/76; PULSE 80
--- NOTE | 2020-04-05 21:45 | EKG ---
Test Reason : Blood Pressure : / mmHG Vent. Rate : 123 BPM Atrial Rate : 123 BPM P-R Int : 146 ms QRS Dur : 088 ms QT Int : 320 ms P-R-T Axes : 044 058 030 degrees QTc Int : 458 ms SINUS TACHYCARDIA OTHERWISE NORMAL ECG WHEN COMPARED WITH ECG OF 26-MAR-2020 08:27, VENT. RATE HAS INCREASED BY 46 BPM Confirmed by Kaleigh Thompson ([id number]) on 04/05/2020 9:44:30 PM Referred By: Confirmed By:Kaleigh Thompson
--- NOTE | 2020-04-08 15:04 | EKG ---
Test Reason : Blood Pressure : / mmHG Vent. Rate : 099 BPM Atrial Rate : 099 BPM P-R Int : 152 ms QRS Dur : 088 ms QT Int : 348 ms P-R-T Axes : 032 028 014 degrees QTc Int : 446 ms NORMAL SINUS RHYTHM NORMAL ECG WHEN COMPARED WITH ECG OF 05-APR-2020 05:02, NO SIGNIFICANT CHANGE WAS FOUND Confirmed by MD Page Daniel ([id number]) on 04/08/2020 3:04:13 PM Referred By: Confirmed By:Brayan Page MD
== END 2020-04-05 09:49 | disposition home or self-care (01) ==
LOC: JER 04:55
PROC: 3E033NZ Introduction of Analgesics, Hypnotics, Sedatives into Peripheral Vein, Percutaneous Approach (ICD-10-PCS; principal; 2020-04-05)
DX: R07.9 Chest pain, unspecified (principal); I10 Essential (primary) hypertension
CPT/HCPCS: 36415; 71045-TC-FY; 80053; 82550; 82553; 84484; 85025; 85610; 93005; 93010; 99285-25; C9803; U0003

== ENCOUNTER 2020-06-27 00:56 | Inpatient (IN) | payer OTHER ==
[2020-06-27] MEDS ORDERED: SODIUM CHLORIDE 0.9% 500 ML INFUS.BAG IV ONE (01:53)
[2020-06-27 01:59] VITALS: BMI 15.6
[2020-06-27 02:32] LABS: BASO % 0.6 % (0-2.0); EOS % 4.2 % (0-4.5); HEMATOCRIT 40.9 % (35.4-49); HEMOGLOBIN 14.1 GM/dL (11.7-16.9); LYMPH % 28.4 % (8-40); MCH 28.1 pg (25.7-33.7); MCHC 34.6 g/dl (32.0-35.9); MEAN CELL VOLUME 81.2 fl (80-96); MEAN PLT VOLUME 9.2 fl (7.5-11.1); MONO % 7.7 % (3.8-10.2); NEUT % 59.1 % (42.8-82.8); PLATELET COUNT 172 K/MM3 (134-434); RBC 5.03 M/mm3 (4.00-5.60); RDW 13.3 % (11.9-15.9); WHITE BLOOD COUNT 6.4 K/mm3 (4.0-10.0)
[2020-06-27 02:36] LABS: URINE APPEARANCE CLEAR; URINE BILIRUBIN NEGATIVE (NEGATIVE); URINE COLOR YELLOW; URINE GLUCOSE (UA) 3+ (NEGATIVE); URINE KETONE NEGATIVE (NEGATIVE); URINE LEUK ESTERASE NEGATIVE (NEGATIVE); URINE NITRITE NEGATIVE (NEGATIVE); URINE PROTEIN NEGATIVE (NEGATIVE); URINE UROBILINOGEN 0.2 mg/dL (0.2-1.0)
[2020-06-27] MEDS ORDERED: SODIUM CHLORIDE 500 ML IV STA (02:46)
[2020-06-27 02:48] LABS: INR 0.87 (0.83-1.09); PROTHROMBIN TIME (PATIENT) 10.6 SEC (9.7-13.0)
[2020-06-27 02:50] LABS: CHLORIDE 100 mmol/L (98-107); SODIUM 132 mmol/L (136-145)
[2020-06-27 02:52] LABS: CALCIUM 8.8 mg/dL (8.5-10.1); GLUCOSE,RANDOM 337 mg/dL (74-106)
[2020-06-27 02:53] LABS: ALBUMIN 4.4 g/dl (3.4-5.0); ANION GAP 6 MMOL/L (8-16); BLOOD UREA NITROGEN 24.5 mg/dL (7-18); CO2 27 mmol/L (21-32); MAGNESIUM 1.7 mg/dL (1.8-2.4)
[2020-06-27 02:56] LABS: CREATININE 1.6 mg/dL (0.55-1.3); SGOT/AST 24 U/L (15-37); SGPT/ALT 42 U/L (13-61)
[2020-06-27 02:57] LABS: BILIRUBIN,TOTAL 0.4 mg/dL (0.2-1); TOT PROT 7.5 g/dl (6.4-8.2)
[2020-06-27 02:58] LABS: ALK PHOS 60 U/L (45-117)
[2020-06-27] MEDS ORDERED: SODIUM CHLORIDE 1,000 ML IV SCH (05:15)
[2020-06-27] MEDS ORDERED: MAGNESIUM SULF 50% (8.12 MEQ/2 ML-1 GM VIAL) IVPB ONE (05:29)
[2020-06-27] MEDS ORDERED: MAGNESIUM 1GM/D5W - 1 GM/100 ML IVPB IVPB ONE (05:49)
[2020-06-27] MEDS ORDERED: HEPARIN NA (PORCINE) 5,000 UNITS/ML 1ML VIAL ONE ×2 (05:49→14:43)
[2020-06-27] MEDS: HEPARIN NA (PORCINE) 5,000 UNITS/ML 1ML VIAL SQ SCH ×2 (06:18→14:55)
[2020-06-27 07:18] LABS: HEMATOCRIT 38.5 % (35.4-49); HEMOGLOBIN 13.7 GM/dL (11.7-16.9); MCH 28.3 pg (25.7-33.7); MCHC 35.6 g/dl (32.0-35.9); MEAN CELL VOLUME 79.5 fl (80-96); MEAN PLT VOLUME 9.1 fl (7.5-11.1); PLATELET COUNT 176 K/MM3 (134-434); RBC 4.84 M/mm3 (4.00-5.60); RDW 13.1 % (11.9-15.9); WHITE BLOOD COUNT 5.7 K/mm3 (4.0-10.0)
[2020-06-27 07:43] LABS: POTASSIUM 4.3 mmol/L (3.5-5.1)
[2020-06-27 07:50] LABS: CALCIUM 8.5 mg/dL (8.5-10.1)
[2020-06-27 07:51] LABS: BLOOD UREA NITROGEN 23.9 mg/dL (7-18); MAGNESIUM 1.6 mg/dL (1.8-2.4)
[2020-06-27 07:53] LABS: BILIRUBIN,TOTAL 0.4 mg/dL (0.2-1)
[2020-06-27 07:54] LABS: CREATININE 1.2 mg/dL (0.55-1.3); PHOSPHOROUS 2.5 mg/dL (2.5-4.9)
[2020-06-27 07:55] LABS: TOT PROT 6.9 g/dl (6.4-8.2)
[2020-06-27] MEDS: INSULIN SLIDING SCALE (NOVOLOG) 1 VIAL SQ SCH ×2 (09:34→12:23)
[2020-06-27] MEDS ORDERED: MAGNESIUM 2GM/50ML STERILE WATER IVPB IVPB ONE (10:45)
[2020-06-27] MEDS ORDERED: MAGNESIUM SULFATE IN WATER 2 GM/50 ML IVPB IVPB ONE (12:06)
[2020-06-27 16:54] VITALS: BP 134/84; PULSE 82; TEMP 98.6
== END 2020-06-27 16:45 | disposition home or self-care (01) | DRG 201 ==
LOC: JER 00:56 → JERBED 04:35
PROVIDERS: ADMIT Internal Medicine; ATTEND Internal Medicine
DX: I49.3 Ventricular premature depolarization (principal); N17.9 Acute kidney failure, unspecified; I10 Essential (primary) hypertension; E78.5 Hyperlipidemia, unspecified; E11.9 Type 2 diabetes mellitus without complications; R00.0 Tachycardia, unspecified; E83.42 Hypomagnesemia; E78.00 Pure hypercholesterolemia, unspecified
CPT/HCPCS: 36415; 71045-TC-FY; 80053; 80061; 81003; 82550; 82553; 82962; 83036; 83721; 83735; 84100; 84439; 84443; 84484; 85025; 85027; 85610; 85730; 87086; 93005; 93010; 99285-25; C9803; J1644; U0003

== ENCOUNTER 2020-10-20 12:14 | Emergency (ER) | payer OTHER ==
[2020-10-20 12:26] VITALS: BP 151/81; PULSE 100; TEMP 98.4; BMI 34.3
== END 2020-10-20 15:07 | disposition home or self-care (01) ==
LOC: JER 12:14
DX: S00.03XA Contusion of scalp, initial encounter (principal)
CPT/HCPCS: 70450-TC; 93005; 93010; 99284-25

== ENCOUNTER 2022-05-15 22:35 | Emergency (ER) | payer BC, OTHER ==
[2022-05-15 22:54] VITALS: BP 149/80; PULSE 89; RESP 18; TEMP 98.1; BMI 34.0
[2022-05-16] MEDS ORDERED: LIDOCAINE 5% TOPICAL PATCH TP ONE (00:12)
[2022-05-16] MEDS ORDERED: LIDOCAINE 5% TOPICAL PATCH ONE (00:14)
[2022-05-16] MEDS ORDERED: LIDOCAINE PATCH REMOVAL MC ONE (12:00)
== END 2022-05-16 02:14 | disposition home or self-care (01) ==
LOC: JER 22:35 → JERFT 22:35 → JER 05-16 02:14
DX: M54.9 Dorsalgia, unspecified (principal); R21 Rash and other nonspecific skin eruption
CPT/HCPCS: 99283-25